=== PATIENT | male | born 1990 | race Caucasian/White ===

== ENCOUNTER 2025-02-23 13:50 | Outpatient (CLI) | payer BC, SELFPAY ==
--- OUTSIDE RECORDS SUMMARY | 2025-02-21 17:14 | XMS_ITS | Encounter Summary ---
Author Organization [facility] Address [address] [place] [address] Care Team Providers Care Collection Advisor Name Role Phone Provider, No Known Primary Care Provider Unavail able Reason for Visit * Reason Comments Chest Pain Encounter Details Date Type Department Care Team (Late st Contact Info) Description 02/21/2025 5:14 PM EDT - 02/21/2025 9:04 PM EDT Emergency [facility] [address] [place] [address] Naveen Martin MD [address] [place], [place] [id number] Acute chest pain (Primary Dx); Smoker; BMI [...] 5:28 PM EDT Kaylie Bailon, NU * [place] Suicide Severity Rating Scale (Screener/Recent Self-Report) Question [...] Care Everywhere. * Nonspecific Chest Pain Adult [id number] (Tunisian) documented in this encounter ED Notes * [...] this chart in the absence of a roll tube setter. ECG 12 Lead Chest Pain Preliminary Result [...] MD 02/21/2025 6:00 PM EDT Workstation ID: [id number] I ordered and independently reviewed the above [...] independently interpreted the patient's chest x-ray and water treatment technician. There is no pulmonary infiltrate and the [...] <6 <22 ng/L 02/21/2025 7:46 PM EDT [facility] Troponin T Numeric Delta 02/21/2025 7:46 PM EDT [facility] Comment:Unable to calculate. Blood Structure of left upper limb / Unknown Venipuncture / Unknown 02/21/2025 7:02 PM EDT 02/21/2025 7:13 PM EDT Narrative [facility] - 02/21/2025 7:46 PM EDT [...] MD LAB BLOOD ORDERABLES Final R esult [facility]
[address] [place] [address], * XR Chest 1 View (02/21/2025 5:53 PM EDT) Anatomical Region Laterality Modality Body N/A Radiographic Cindy ging 02/21/2025 6:00 PM EDT Impressions 02/21/2025 6:00 PM EDT Impression: 1.No acute radiographic abnormality is identified. Electronically Signed: Marito Guthrie MD 02/21/2025 6:00 PM EDT Workstation ID: [id number] Narrative 02/21/2025 6:00 PM EDT XR CHEST [...] MD 02/21/2025 6:00 PM EDT Workstation ID: [id number] Naveen Martin MD IM DIAGNOSTIC IMAGING ORDER CY Final Result * Telemetry Scan (02/21/2025 5:34 PM EDT) [facility] ECG ORDERABLES Final Result * (ABNORMAL) CBC Auto Differential (02/21/2025 5:26 PM EDT) WBC 11.45(H) 3.40 - 10.80 10*3/mm3 02/21/2025 5:51 PM EDT [facility] RBC 5.29 4.14 - 5.80 10*6/mm3 02/21/2025 5:51 PM EDT [facility] Hemoglobin 15.5 13.0 - 17.7 g/dL 02/21/2025 5:51 PM EDT [facility] Hematocrit 46.7 37.5 - 51.0 % 02/21/2025 5:51 PM EDT [facility] MCV 88.3 79.0 - 97.0 fL 02/21/2025 5:51 PM EDT [facility] MCH 29.3 26.6 - 33.0 pg 02/21/2025 5:51 PM EDT [facility] MCHC 33.2 31.5 - 35.7 g/dL 02/21/2025 5:51 PM EDT [facility] RDW 13.2 12.3 - 15.4 % 02/21/2025 5:51 PM EDT [facility] RDW-SD 42.9 37.0 - 54.0 fl 02/21/2025 5:51 PM EDT [facility] MPV 9.7 6.0 - 12.0 fL 02/21/2025 5:51 PM EDT [facility] Platelets 312 140 - 450 10*3/mm3 02/21/2025 5:51 PM EDT [facility] Neutrophil % 51.9 42.7 - 76.0 % 02/21/2025 5:51 PM EDT [facility] Lymphocyte % 34.0 19.6 - 45.3 % 02/21/2025 5:51 PM EDT [facility] Monocyte % 9.0 5.0 - 12.0 % 02/21/2025 5:51 PM EDT [facility] Eosinophil % 4.0 0.3 - 6.2 % 02/21/2025 5:51 PM EDT [facility] Basophil % 0.8 0.0 - 1.5 % 02/21/2025 5:51 PM EDT [facility] Immature Grans % 0.3 0.0 - 0.5 % 02/21/2025 5:51 PM EDT [facility] Neutrophils, Absolute 5.95 1.70 - 7.00 10*3/mm3 02/21/2025 5:51 PM EDT [facility] Lymphocytes, Absolute 3.89(H) 0.70 - 3.10 10*3/mm3 02/21/2025 5:51 PM EDT [facility] Monocytes, Absolute 1.03(H) 0.10 - 0.90 10*3/mm3 02/21/2025 5:51 PM EDT [facility] Eosinophils, Absolute 0.46(H) 0.00 - 0.40 10*3/mm3 02/21/2025 5:51 PM EDT [facility] Basophils, Absolute 0.09 0.00 - 0.20 10*3/mm3 02/21/2025 5:51 PM EDT [facility] Immature Grans, Absolute 0.03 0.00 - 0.05 10*3/mm3 02/21/2025 5:51 PM EDT [facility] nRBC 0.0 0.0 - 0.2 /100 WBC 02/21/2025 5:51 PM EDT [facility] Blood Venipuncture / Unknown 02/21/2025 5:26 PM EDT 02/21/2025 5:35 PM EDT Naveen Martin MD LAB BLOOD ORDERABLES Final R esult [facility]
[address] [place] [address], * Light Blue Top (02/21/2025 5:26 PM EDT) Extra Tube Hold for add-ons. 02/21/2025 5:46 PM EDT [facility] Comment:Auto resulted Blood Venipuncture / Unknown 02/21/2025 5:26 PM EDT 02/21/2025 5:35 PM EDT Naveen Martin MD LAB BLOOD ORDER ONLY Final R esult [facility]
[address] [place] [address], * Lee Top (02/21/2025 5:26 PM EDT) Extra Tube Hold for add-ons. 02/21/2025 5:46 PM EDT [facility] Comment:Auto resulted. Blood Venipuncture / Unknown 02/21/2025 5:26 PM EDT 02/21/2025 5:35 PM EDT us Naveen Martin MD LAB BLOOD ORDER ONLY Final R esult Performing Organization Address City/[facility]/ZIP Co de Phone Number [facility]
[address] [place] [address], * Gold Top - SST (02/21/2025 5:26 PM EDT) Extra Tube Hold for add-ons. 02/21/2025 5:46 PM EDT [facility] Comment:Auto resulted. Blood Venipuncture / Unknown 02/21/2025 5:26 PM EDT 02/21/2025 5:35 PM EDT us Naveen Martin MD LAB BLOOD ORDER ONLY Final R esult Performing Organization Address [facility]/ZIP Co de Phone Number [facility]
[address] [place] [address], * Lavender Top (02/21/2025 5:26 PM EDT) Extra Tube hold for add-on 02/21/2025 5:46 PM EDT [facility] Comment:Auto resulted Blood Venipuncture / Unknown 02/21/2025 5:26 PM EDT 02/21/2025 5:35 PM EDT us Naveen Martin MD LAB BLOOD ORDER ONLY Final R esult Performing Organization Address City/[facility]/ZIP Co de Phone Number [facility]
[address] [place] [address], [place] [phone] * Green Top (Gel) (02/21/2025 5:26 PM EDT) Extra Tube Hold for add-ons. 02/21/2025 5:46 PM EDT [facility] Comment:Auto resulted. Blood Venipuncture / Unknown 02/21/2025 5:26 PM EDT 02/21/2025 5:35 PM EDT Naveen Martin MD LAB BLOOD ORDER ONLY Final R esult Performing Organization Address City/[facility]/ZIP Co de Phone Number [facility]
[address] [place] [address], * BNP (02/21/2025 5:26 PM EDT) proBNP <36.0 0.0 - 450.0 pg/mL 02/21/2025 5:58 PM EDT [facility] Blood Venipuncture / Unknown 02/21/2025 5:26 PM EDT 02/21/2025 5:35 PM EDT Narrative [facility] - 02/21/2025 5:58 PM EDT [...] ORDERABLES Final R esult Performing Organization Address City/[facility]/ZIP Co de Phone Number [facility]
[address] [place] [address], * Lipase (02/21/2025 5:26 PM EDT) Lipase 33 13 - 60 U/L 02/21/2025 5:58 PM EDT [facility] Blood Venipuncture / Unknown 02/21/2025 5:26 PM EDT 02/21/2025 5:35 PM EDT Naveen Martin MD LAB BLOOD ORDERABLES Final R esult [facility]
[address] [place] [address], * Comprehensive Metabolic Panel (02/21/2025 5:26 PM EDT) Glucose 85 65 - 99 mg/dL 02/21/2025 5:58 PM EDT [facility] BUN 15.7 6.0 - 20.0 mg/dL 02/21/2025 5:58 PM EDT [facility] Creatinine 0.93 0.76 - 1.27 mg/dL 02/21/2025 5:58 PM EDT [facility] Sodium 141 136 - 145 mmol/L 02/21/2025 5:58 PM EDT [facility] Potassium 4.2 3.5 - 5.2 mmol/L 02/21/2025 5:58 PM EDT [facility] Chloride 106 98 - 107 mmol/L 02/21/2025 5:58 PM EDT [facility] CO2 26.5 22.0 - 29.0 mmol/L 02/21/2025 5:58 PM EDT [facility] Calcium 9.4 8.6 - 10.5 mg/dL 02/21/2025 5:58 PM EDT [facility] Total Protein 7.3 6.0 - 8.5 g/dL 02/21/2025 5:58 PM EDT [facility] Albumin 4.6 3.5 - 5.2 g/dL 02/21/2025 5:58 PM EDT [facility] ALT (SGPT) 18 1 - 41 U/L 02/21/2025 5:58 PM EDT [facility] AST (SGOT) 16 1 - 40 U/L 02/21/2025 5:58 PM EDT [facility] Alkaline Phosphatase 53 39 - 117 U/L 02/21/2025 5:58 PM EDT [facility] Total Bilirubin 0.6 0.0 - 1.2 mg/dL 02/21/2025 5:58 PM EDT [facility] Globulin 2.7 gm/dL 02/21/2025 5:58 PM EDT [facility] Comment:Calculated Result A/G Ratio 1.7 g/dL 02/21/2025 5:58 PM EDT [facility] BUN/Creatinine Ratio 16.9 7.0 - 25.0 02/21/2025 5:58 PM EDT [facility] Anion Gap 8.5 5.0 - 15.0 mmol/L 02/21/2025 5:58 PM EDT [facility] eGFR 110.5 >60.0 mL/min/1.7 3 02/21/2025 5:58 PM EDT [facility] Blood Venipuncture / Unknown 02/21/2025 5:26 PM EDT 02/21/2025 5:35 PM EDT [facility] - 02/21/2025 5:58 PM EDT GFR [...] MD LAB BLOOD ORDERABLES Final R esult [facility]
[address] [place] [address], [place] [phone] * High Sensitivity Troponin T (02/21/2025 5:26 PM EDT) HS Troponin T 17 <22 ng/L 02/21/2025 5:58 PM EDT [facility] Blood Venipuncture / Unknown 02/21/2025 5:26 PM EDT 02/21/2025 5:35 PM EDT Narrative [facility] - 02/21/2025 5:58 PM EDT [...] MD LAB BLOOD ORDERABLES Final R esult [facility]
[address] [place] [address], documented in this encounter Visit Diagnoses Diagnosis [...] [id number] documented in this encounter Care Teams Collection Advisor Relationship Specialty Start Date End Date Provider, [place] [address] PCP - General 02/21/25 documented as of this encounter
[2025-02-23 14:41] LABS: Hematocrit 45.7 % (42.0-52.0); Hemoglobin 15.2 g/dL (14.1-18.0); Immature Granulocytes % 0.3 %; Mean Corpuscular HGB Conc 33.3 g/dL (31.8-35.4); Mean Corpuscular Hemoglobin 29.2 pg (27.0-31.2); Mean Corpuscular Volume 87.9 fl (80-94); Nucleated Red Blood Cells % 0 %; Platelet Count 314 K/mm3 (142-424); Red Blood Count 5.20 M/mm3 (4.60-6.20); Red Cell Distribution Width-SD 41.8 fL; White Blood Count 9.0 K/mm3 (4.8-10.8)
--- OUTSIDE RECORDS SUMMARY | 2025-02-23 14:45 | XMS_ITS | Encounter Summary ---
Author Organization [facility] Address [address] [place] [address] Care Team Providers Care Foreclosure Home Inspector Name Role Phone Provider, No Known Primary Care Provider Unavail able Encounter Details Date Type Department Care Team (Latest Contact Info) Description 02/21/2025 Travel Social History Tobacco Use Types Packs/Day Years [...] on file documented as of this encounter Functional Status * Calculated C-SSRS Risk Score (Lifetime/Recent) Answer Date of Assessment Author No Risk Indicated 02/21/2025 5:28 PM EDT Kalyie Bailon, RN * [place] Suicide Severity Rating Scale (Screener/Recent Self-Report) Question Answer Date of Assessment Author 1. Wish to be (Past 1 Month) No 025 5:28 PM EDT Kaylie Bailon, RN 2. Non-Specific Active Suici carmelita Thoughts (Past 1 Month) No 02/21/2025 5:28 PM EDT Kaylie Bailon , RN 6. Suicidal Behavior (Lifetime) No 5:28 PM EDT Kaylie Bailon, RN documented as of this encounter Plan of Treatment Not on file documented as of this encounter Visit Diagnoses Not on filedocumented in this encounter Care Teams Foreclosure Home Inspector Relationship Specialty Start Date End Date Provider, [place] [address] PCP - General 02/21/25 documented as of this encounter
--- OUTSIDE RECORDS SUMMARY | 2025-02-23 14:45 | XMS_ITS | Clinical Summary ---
Author Organization [facility] Address [address] [place] [address] Care Team Providers Care Advertising Copywriter Name Role Phone Provider, No Known Primary Care Provider Unavail able Allergies No known active allergies Medications No known medications Encounters Date Type Department Care Team Description 02/21/2025 5:14 PM EDT - 02/21/2025 9:04 PM EDT Emergency [facility] [address] [place] [phone] Naveen Martin MD Acute chest pain (Primary Dx); Smoker; BMI 31.0-31.9,adult Discharge Disposition: Home or Self Care 02/21/2025 Travel from Last 3 Months Social History Tobacco Use Types Packs/Day Years [...] on file Sexual Orientation Not on file Last Filed Vital Signs Vital Sign Reading [...] Mass Index 31.66 02/21/2025 3:56 PM EDT Plan of Treatment Health Maintenance Due Date Last Done Comments ANNUAL PHYSICAL 1990 HEPATITIS C SCREENING 1990 TDAP/TD VACCINES (1 - Tdap) 2009 INFLUENZA VACCINE 11/28/2024 Pneumococcal Vaccine 0-49 Aged Out No longer eligible based on patient's age to complete this topic Procedures Procedure Name Priority Date/Time Associated Diagnosis [...] - TELEMETRY 02/21/2025 5 :34 PM EDT LIGHT BLUE TOP STAT 02/21/2025 5:26 PM EDT LEE TOP STAT 02/21/2025 5:26 PM EDT GOLD TOP - SST STAT 02/21/2025 5:26 PM EDT LAVENDER TOP STAT 02/21/2025 5:26 PM EDT DK GREEN TOP STAT 02/21/2025 5:26 PM EDT CBC AND DIFFERENTIAL STAT 02/21/2025 5:26 PM EDT CBC WITH AUTO DIFFERENTIAL STAT 02/21/2025 5:26 PM EDT B-TYPE NATRIURETIC PEPTIDE STAT 02/21/2025 5:26 PM EDT LIPASE STAT 02/21/2025 5:26 PM EDT COMPREHENSIVE METABOLIC PANEL STAT 02/21/2025 5:26 PM EDT TROPONIN STAT 02/21/2025 5:26 PM EDT RAINBOW DRAW STAT 02/21/2025 5:26 PM EDT ECG 12-LEAD [...] previous ECGs available Referred By: Confirmed By: from Last 3 Months Results * High Sensitivity Troponin T 1Hr (02/21/2025 7:02 PM EDT) HS Troponin T <6 <22 ng/L 02/21/2025 7:46 PM EDT [facility] Troponin T Numeric Delta 02/21/2025 7:46 PM EDT [facility] Comment:Unable to calculate. Blood Structure of left upper limb / Unknown Venipuncture / Unknown 02/21/2025 7:02 PM EDT 02/21/2025 7:13 PM EDT Narrative [facility] - 02/21/2025 7:46 PM EDT High [...] injury due to an underlying chronic condition. us Naveen Martin MD LAB BLOOD ORDERABLES Final R esult [facility]
[address] [place] [address], * XR Chest 1 View (02/21/2025 5:53 PM EDT) Anatomical Region Laterality Modality Body N/A Radiographic Cindy ging 02/21/2025 6:00 PM EDT Impressions 02/21/2025 6:00 PM EDT Impression: 1.No acute radiographic abnormality is identified. Electronically Signed: Marito Guthrie MD 02/21/2025 6:00 PM EDT Workstation ID: [id number] Narrative 02/21/2025 6:00 PM EDT XR CHEST [...] MD 02/21/2025 6:00 PM EDT Workstation ID: [id number] Naveen Martin MD IMG DIAGNOSTIC IMAGING ORDER CY Final Result * Telemetry Scan (02/21/2025 5:34 PM EDT) [facility] ORDERABLES Final Result * Lee Top (02/21/2025 5:26 PM EDT) Extra Tube Hold for add-ons. 02/21/2025 5:46 PM EDT [facility] Comment:Auto resulted. Blood Venipuncture / Unknown 02/21/2025 5:26 PM EDT 02/21/2025 5:35 PM EDT Naveen Martin MD LAB BLOOD ORDER ONLY Final R esult [facility]
[address] [place] [address], * Gold Top - SST (02/21/2025 5:26 PM EDT) Extra Tube Hold for add-ons. 02/21/2025 5:46 PM EDT [facility] Comment:Auto resulted. Blood Venipuncture / Unknown 02/21/2025 5:26 PM EDT 02/21/2025 5:35 PM EDT Naveen Martin MD LAB BLOOD ORDER ONLY Final R esult Performing Organization Address City/[facility]/ZIP Co de Phone Number [facility]
[address] [place] [address], * Green Top (Gel) (02/21/2025 5:26 PM EDT) Pathologist [facility] Extra Tube Hold for add-ons. 02/21/2025 5:46 PM EDT [facility] Comment:Auto resulted. Blood Venipuncture / Unknown 02/21/2025 5:26 PM EDT 02/21/2025 5:35 PM EDT Naveen Martin MD LAB BLOOD ORDER ONLY Final R esult Performing Organization Address City/[facility]/ZIP Co de Phone Number [facility]
[address] [place] [address], * (ABNORMAL) CBC Auto Differential (02/21/2025 5:26 PM EDT) Pathologist [facility] WBC 11.45(H) 3.40 - 10.80 10*3/mm3 02/21/2025 5:51 PM EDT [facility] RBC 5.29 4.14 - 5.80 10*6/mm3 02/21/2025 5:51 PM EDT [facility] Hemoglobin 15.5 13.0 - 17.7 g/dL 02/21/2025 5:51 PM EDT [facility] Hematocrit 46.7 37.5 - 51.0 % 02/21/2025 5:51 PM EDT [facility] MCV 88.3 79.0 - 97.0 fL 02/21/2025 5:51 PM EDT [facility] MCH 29.3 26.6 - 33.0 pg 02/21/2025 5:51 PM EDT [facility] MCHC 33.2 31.5 - 35.7 g/dL 02/21/2025 5:51 PM EDT [facility] RDW 13.2 12.3 - 15.4 % 02/21/2025 5:51 PM EDT [facility] RDW-SD 42.9 37.0 - 54.0 fl 02/21/2025 5:51 PM EDT [facility] MPV 9.7 6.0 - 12.0 fL 02/21/2025 5:51 PM EDT [facility] Platelets 312 140 - 450 10*3/mm3 02/21/2025 5:51 PM EDT [facility] Neutrophil % 51.9 42.7 - 76.0 % 02/21/2025 5:51 PM EDT [facility] Lymphocyte % 34.0 19.6 - 45.3 % 02/21/2025 5:51 PM EDT [facility] Monocyte % 9.0 5.0 - 12.0 % 02/21/2025 5:[facility] Eosinophil % 4.0 0.3 - 6.2 % 02/21/2025 5:51 PM EDT [facility] Basophil % 0.8 0.0 - 1.5 % 02/21/2025 5:51 PM EDT [facility] Immature Grans % 0.3 0.0 - 0.5 % 02/21/2025 5:51 PM EDT [facility] Neutrophils, Absolute 5.95 1.70 - 7.00 10*3/mm3 02/21/2025 5:51 PM EDT [facility] Lymphocytes, Absolute 3.89(H) 0.70 - 3.10 10*3/mm3 02/21/2025 5:51 PM EDT [facility] Monocytes, Absolute 1.03(H) 0.10 - 0.90 10*3/mm3 02/21/2025 5:51 PM EDT [facility] Eosinophils, Absolute 0.46(H) 0.00 - 0.40 10*3/mm3 02/21/2025 5:51 PM EDT [facility] Basophils, Absolute 0.09 0.00 - 0.20 10*3/mm3 02/21/2025 5:51 PM EDT [facility] Immature Grans, Absolute 0.03 0.00 - 0.05 10*3/mm3 02/21/2025 5:51 PM EDT [facility] nRBC 0.0 0.0 - 0.2 /100 WBC 02/21/2025 5:51 PM EDT [facility] Blood Venipuncture / Unknown 02/21/2025 5:26 PM EDT 02/21/2025 5:35 PM EDT Naveen Martin MD LAB BLOOD ORDERABLES Final R esult Performing Organization Address City/[facility]/ZIP Co de Phone Number [facility]
[address] [place] [address], * Lavender Top (02/21/2025 5:26 PM EDT) Extra Tube hold for add-on 02/21/2025 5:46 PM EDT [facility] Comment:Auto resulted Blood Venipuncture / Unknown 02/21/2025 5:26 PM EDT 02/21/2025 5:35 PM EDT Naveen Martin MD LAB BLOOD ORDER ONLY Final R esult [facility]
[address] [place] [address], * Light Blue Top (02/21/2025 5:26 PM EDT) Extra Tube Hold for add-ons. 02/21/2025 5:46 PM EDT [facility] Comment:Auto resulted Blood Venipuncture / Unknown 02/21/2025 5:26 PM EDT 02/21/2025 5:35 PM EDT Naveen Martin MD LAB BLOOD ORDER ONLY Final R esult [facility]
[address] [place] [address], * High Sensitivity Troponin T (02/21/2025 5:26 PM EDT) HS Troponin T 17 <22 ng/L 02/21/2025 5:58 PM EDT [facility] Blood Venipuncture / Unknown 02/21/2025 5:26 PM EDT 02/21/2025 5:35 PM EDT [facility] - 02/21/2025 5:58 PM EDT High [...] ORDERABLES Final R esult Performing Organization Address City/[facility]/ZIP Co de Phone Number [facility]
[address] [place] [address], * BNP (02/21/2025 5:26 PM EDT) proBNP <36.0 0.0 - 450.0 pg/mL 02/21/2025 5:58 PM EDT [facility] Blood Venipuncture / Unknown 02/21/2025 5:26 PM EDT 02/21/2025 5:35 PM EDT Narrative [facility] - 02/21/2025 5:58 PM EDT This [...] >75 Positive >1800 Lee 300-1800 Negative <300 Naveen Martin MD LAB BLOOD ORDERABLES Final R esult Performing Organization Address City/[facility]/ZIP Co de Phone Number [facility]
[address] [place] [address], * Lipase (02/21/2025 5:26 PM EDT) Lipase 33 13 - 60 U/L 02/21/2025 5:58 PM EDT [facility] Blood Venipuncture / Unknown 02/21/2025 5:26 PM EDT 02/21/2025 5:35 PM EDT Naveen Martin MD LAB BLOOD ORDERABLES Final R esult Performing Organization Address City/[facility]/ZIP Co de Phone Number [facility]
[address] [place] [address], * Comprehensive Metabolic Panel (02/21/2025 5:26 PM EDT) Glucose 85 65 - 99 mg/dL 02/21/2025 5:58 PM EDT [facility] BUN 15.7 6.0 - 20.0 mg/dL 02/21/2025 5:58 PM EDT [facility] Creatinine 0.93 0.76 - 1.27 mg/dL 02/21/2025 5:58 PM EDT [facility] Sodium 141 136 - 145 mmol/L 02/21/2025 5:58 PM EDT [facility] Potassium 4.2 3.5 - 5.2 mmol/L 02/21/2025 5:58 PM EDT [facility] Chloride 106 98 - 107 mmol/L 02/21/2025 5:58 PM EDT [facility] CO2 26.5 22.0 - 29.0 mmol/L 02/21/2025 5:58 PM EDT [facility] Calcium 9.4 8.6 - 10.5 mg/dL 02/21/2025 5:58 PM EDT [facility] Total Protein 7.3 6.0 - 8.5 g/dL 02/21/2025 5:58 PM EDT [facility] Albumin 4.6 3.5 - 5.2 g/dL 02/21/2025 5:58 PM EDT [facility] ALT (SGPT) 18 1 - 41 U/L 02/21/2025 5:58 PM EDT [facility] AST (SGOT) 16 1 - 40 U/L 02/21/2025 5:58 PM EDT [facility] Alkaline Phosphatase 53 39 - 117 U/L 02/21/2025 5:58 PM T [facility] Total Bilirubin 0.6 0.0 - 1.2 mg/dL 02/21/2025 5:58 PM EDT [facility] Globulin 2.7 gm/dL 02/21/2025 5:58 PM T [facility] Comment:Calculated Result A/G Ratio 1.7 g/dL 02/21/2025 5:58 PM EDT [facility] BUN/Creatinine Ratio 16.9 7.0 - 25.0 02/21/2025 5:58 PM T [facility] Anion Gap 8.5 5.0 - 15.0 mmol/L 02/21/2025 5:58 PM T [facility] eGFR 110.5 >60.0 mL/min/1.7 3 02/21/2025 5:58 PM [facility] Blood Venipuncture / Unknown 02/21/2025 5:26 PM EDT 02/21/2025 5:35 PM EDT Narrative [facility] - 02/21/2025 5:58 PM EDT GFR [...] MD LAB BLOOD ORDERABLES Final R esult [facility]
[address] [place] [address], from Last 3 Months Insurance PPO Care Teams Advertising Copywriter Relationship Specialty Start Date End Date Provider, [place] [address] PCP - General 02/21/25
[2025-02-23 15:19] LABS: D-Dimer 0.54 ug/mL (0.0-0.5)
[2025-02-23 16:06] LABS: Albumin Level 3.7 g/dl (3.5-5.0); Chloride 103 mmol/L (98-107)
[2025-02-23 16:07] LABS: Potassium 4.3 mmoL/L (3.5-5.1); Sodium 137 mmol/L (136-145)
[2025-02-23 16:09] LABS: Alanine Aminotransferase 20 U/L (12-78); Anion Gap 11.3 mEq/L (5-15); Aspartate Amino Transferase 22 U/L (17-59); Bilirubin,Unconjugated 1.0 mg/dL (0.0-1.1); Blood Urea Nitrogen 15 mg/dl (9-20); Carbon Dioxide 27 mmol/L (22.0-30.0); Cholesterol 152 mg/dl (140-200); Creatinine,Serum 0.90 mg/dl (0.66-1.25); Estimated Glomerular Filt Rate 97 ml/min (>60); GFR (African American) 117 ML/MIN (>60); Total Protein,Serum 7.4 g/dl (6.3-8.2); Triglycerides 60 mg/dl (30-150)
[2025-02-23 16:10] LABS: Alkaline Phosphatase 58 U/L (38-126); Bilirubin,Direct 0.2 mg/dl (0.0-0.4); Bilirubin,Indirect 1.0 mg/dL (0.0-0.9); Bilirubin,Total 1.2 mg/dl (0.2-1.3); Calcium 9.3 mg/dl (8.4-10.2); Glucose 83 mg/dl (74-100); HDL Cholesterol 39 mg/dl (40-60); Magnesium 2.0 mg/dl (1.6-2.3)
[2025-02-23 16:27] LABS: Free T4 (Free Thyroxine) 0.97 ng/dl (0.78-2.19)
[2025-02-23 16:41] LABS: Thyroid Stimulating Hormone 3.06 uIU/mL (0.465-4.68)
== END 2025-02-23 23:59 | disposition home or self-care (01) ==
PROVIDERS: Visit Provider Nurse Practitioner
DX: R00.2 Palpitations (principal); R07.9 Chest pain, unspecified; R53.83 Other fatigue; Z82.49 Family history of ischemic heart disease and other diseases of the circulatory system
CPT/HCPCS: 36415; 80048; 80061; 80076; 83735; 84439; 84443; 85025; 85378; 93270

== ENCOUNTER 2025-02-25 14:25 | Outpatient (CLI) | payer BC, SELFPAY ==
--- OUTSIDE RECORDS SUMMARY | 2025-02-21 17:14 | XMS_ITS | Encounter Summary ---
Author Organization [facility] Address [address] [place] [address] Care Team Providers Care Social Media Editor Name Role Phone Provider, No Known Primary Care Provider Unavail able Reason for Visit * Reason Comments Chest Pain Encounter Details Date Type Department Care Team (Late st Contact Info) Description 02/21/2025 5:14 PM EDT - 02/21/2025 9:04 PM EDT Emergency [facility] [address] [place] [address] Naveen Martin MD [address] [place], [place] [id number] Acute chest pain (Primary Dx); Smoker; BMI [...] 5:28 PM EDT Kaylie Bailon, NU * [place] Suicide Severity Rating Scale (Screener/Recent Self-Report) Question [...] Care Everywhere. * Nonspecific Chest Pain Adult [id number] ([place]) documented in this encounter ED Notes * [...] this chart in the absence of a commercial specialist. ECG 12 Lead Chest Pain Preliminary Result [...] MD 02/21/2025 6:00 PM EDT Workstation ID: [id number] I ordered and independently reviewed the above [...] independently interpreted the patient's chest x-ray and registered nurse cardiac telemetry. There is no pulmonary infiltrate and the [...] <6 <22 ng/L 02/21/2025 7:46 PM EDT [facility] Troponin T Numeric Delta 02/21/2025 7:46 PM EDT [facility] Comment:Unable to calculate. Blood Structure of left upper limb / Unknown Venipuncture / Unknown 02/21/2025 7:02 PM EDT 02/21/2025 7:13 PM EDT Narrative [facility] - 02/21/2025 7:46 PM EDT High [...] MD LAB BLOOD ORDERABLES Final R esult [facility]
[address] [place] [address], * XR Chest 1 View (02/21/2025 5:53 PM EDT) Anatomical Region Laterality Modality Body N/A Radiographic Cindy ging 02/21/2025 6:00 PM EDT Impressions 02/21/2025 6:00 PM EDT Impression: 1.No acute radiographic abnormality is identified. Electronically Signed: Marito Guthrie MD 02/21/2025 6:00 PM EDT Workstation ID: [id number] Narrative 02/21/2025 6:00 PM EDT XR CHEST [...] MD 02/21/2025 6:00 PM EDT Workstation ID: [id number] Naveen Martin MD IM DIAGNOSTIC IMAGING ORDER CY Final Result * Telemetry Scan (02/21/2025 5:34 PM EDT) [facility] ORDERABLES Final Result * (ABNORMAL) CBC Auto Differential (02/21/2025 5:26 PM EDT) WBC 11.45(H) 3.40 - 10.80 10*3/mm3 02/21/2025 5:51 PM EDT [facility] RBC 5.29 4.14 - 5.80 10*6/mm3 02/21/2025 5:51 PM EDT [facility] Hemoglobin 15.5 13.0 - 17.7 g/dL 02/21/2025 5:51 PM EDT [facility] Hematocrit 46.7 37.5 - 51.0 % 02/21/2025 5:51 PM EDT [facility] MCV 88.3 79.0 - 97.0 fL 02/21/2025 5:51 PM EDT [facility] MCH 29.3 26.6 - 33.0 pg 02/21/2025 5:51 PM EDT [facility] MCHC 33.2 31.5 - 35.7 g/dL 02/21/2025 5:51 PM EDT [facility] RDW 13.2 12.3 - 15.4 % 02/21/2025 5:51 PM EDT [facility] RDW-SD 42.9 37.0 - 54.0 fl 02/21/2025 5:51 PM EDT [facility] MPV 9.7 6.0 - 12.0 fL 02/21/2025 5:51 PM EDT [facility] Platelets 312 140 - 450 10*3/mm3 02/21/2025 5:51 PM EDT [facility] Neutrophil % 51.9 42.7 - 76.0 % 02/21/2025 5:51 PM EDT [facility] Lymphocyte % 34.0 19.6 - 45.3 % 02/21/2025 5:51 PM EDT [facility] Monocyte % 9.0 5.0 - 12.0 % 02/21/2025 5:51 PM EDT [facility] Eosinophil % 4.0 0.3 - 6.2 % 02/21/2025 5:51 PM EDT [facility] Basophil % 0.8 0.0 - 1.5 % 02/21/2025 5:51 PM EDT [facility] Immature Grans % 0.3 0.0 - 0.5 % 02/21/2025 5:51 PM EDT [facility] Neutrophils, Absolute 5.95 1.70 - 7.00 10*3/mm3 02/21/2025 5:51 PM EDT [facility] Lymphocytes, Absolute 3.89(H) 0.70 - 3.10 10*3/mm3 02/21/2025 5:51 PM EDT [facility] Monocytes, Absolute 1.03(H) 0.10 - 0.90 10*3/mm3 02/21/2025 5:51 PM EDT [facility] Eosinophils, Absolute 0.46(H) 0.00 - 0.40 10*3/mm3 02/21/2025 5:51 PM EDT [facility] Basophils, Absolute 0.09 0.00 - 0.20 10*3/mm3 02/21/2025 5:51 PM EDT [facility] Immature Grans, Absolute 0.03 0.00 - 0.05 10*3/mm3 02/21/2025 5:51 PM EDT [facility] nRBC 0.0 0.0 - 0.2 /100 WBC 02/21/2025 5:51 PM EDT [facility] Blood Venipuncture / Unknown 02/21/2025 5:26 PM EDT 02/21/2025 5:35 PM EDT Naveen Martin MD LAB BLOOD ORDERABLES Final R esult [facility]
[address] [place] [address], * Light Blue Top (02/21/2025 5:26 PM EDT) Extra Tube Hold for add-ons. 02/21/2025 5:46 PM EDT [facility] Comment:Auto resulted Blood Venipuncture / Unknown 02/21/2025 5:26 PM EDT 02/21/2025 5:35 PM EDT Naveen Martin MD LAB BLOOD ORDER ONLY Final R esult [facility]
[address] [place] [address], * Lee Top (02/21/2025 5:26 PM EDT) Extra Tube Hold for add-ons. 02/21/2025 5:46 PM EDT [facility] Comment:Auto resulted. Blood Venipuncture / Unknown 02/21/2025 5:26 PM EDT 02/21/2025 5:35 PM EDT us Naveen Martin MD LAB BLOOD ORDER ONLY Final R esult Performing Organization Address City/[facility]/ZIP Co de Phone Number [facility]
[address] [place] [address], * Gold Top - SST (02/21/2025 5:26 PM EDT) Extra Tube Hold for add-ons. 02/21/2025 5:46 PM EDT [facility] Comment:Auto resulted. Blood Venipuncture / Unknown 02/21/2025 5:26 PM EDT 02/21/2025 5:35 PM EDT us Naveen Martin MD LAB BLOOD ORDER ONLY Final R esult Performing Organization Address [facility]/ZIP Co de Phone Number [facility]
[address] [place] [address], * Lavender Top (02/21/2025 5:26 PM EDT) Extra Tube hold for add-on 02/21/2025 5:46 PM EDT [facility] Comment:Auto resulted Blood Venipuncture / Unknown 02/21/2025 5:26 PM EDT 02/21/2025 5:35 PM EDT us Naveen Martin MD LAB BLOOD ORDER ONLY Final R esult Performing Organization Address City/[facility]/ZIP Co de Phone Number [facility]
[address] [place] [address], [place] [phone] * Green Top (Gel) (02/21/2025 5:26 PM EDT) Extra Tube Hold for add-ons. 02/21/2025 5:46 PM EDT [facility] Comment:Auto resulted. Blood Venipuncture / Unknown 02/21/2025 5:26 PM EDT 02/21/2025 5:35 PM EDT Naveen Martin MD LAB BLOOD ORDER ONLY Final R esult Performing Organization Address City/[facility]/ZIP Co de Phone Number [facility]
[address] [place] [address], * BNP (02/21/2025 5:26 PM EDT) proBNP <36.0 0.0 - 450.0 pg/mL 02/21/2025 5:58 PM EDT [facility] Blood Venipuncture / Unknown 02/21/2025 5:26 PM EDT 02/21/2025 5:35 PM EDT Narrative [facility] - 02/21/2025 5:58 PM EDT This [...] ORDERABLES Final R esult Performing Organization Address City/[facility]/ZIP Co de Phone Number [facility]
[address] [place] [address], * Lipase (02/21/2025 5:26 PM EDT) Lipase 33 13 - 60 U/L 02/21/2025 5:58 PM EDT [facility] Blood Venipuncture / Unknown 02/21/2025 5:26 PM EDT 02/21/2025 5:35 PM EDT Naveen Martin MD LAB BLOOD ORDERABLES Final R esult [facility]
[address] [place] [address], * Comprehensive Metabolic Panel (02/21/2025 5:26 PM EDT) Glucose 85 65 - 99 mg/dL 02/21/2025 5:58 PM EDT [facility] BUN 15.7 6.0 - 20.0 mg/dL 02/21/2025 5:58 PM EDT [facility] Creatinine 0.93 0.76 - 1.27 mg/dL 02/21/2025 5:58 PM EDT [facility] Sodium 141 136 - 145 mmol/L 02/21/2025 5:58 PM EDT [facility] Potassium 4.2 3.5 - 5.2 mmol/L 02/21/2025 5:58 PM EDT [facility] Chloride 106 98 - 107 mmol/L 02/21/2025 5:58 PM EDT [facility] CO2 26.5 22.0 - 29.0 mmol/L 02/21/2025 5:58 PM EDT [facility] Calcium 9.4 8.6 - 10.5 mg/dL 02/21/2025 5:58 PM EDT [facility] Total Protein 7.3 6.0 - 8.5 g/dL 02/21/2025 5:58 PM EDT [facility] Albumin 4.6 3.5 - 5.2 g/dL 02/21/2025 5:58 PM EDT [facility] ALT (SGPT) 18 1 - 41 U/L 02/21/2025 5:58 PM EDT [facility] AST (SGOT) 16 1 - 40 U/L 02/21/2025 5:58 PM EDT [facility] Alkaline Phosphatase 53 39 - 117 U/L 02/21/2025 5:58 PM EDT [facility] Total Bilirubin 0.6 0.0 - 1.2 mg/dL 02/21/2025 5:58 PM EDT [facility] Globulin 2.7 gm/dL 02/21/2025 5:58 PM EDT [facility] Comment:Calculated Result A/G Ratio 1.7 g/dL 02/21/2025 5:58 PM EDT [facility] BUN/Creatinine Ratio 16.9 7.0 - 25.0 02/21/2025 5:58 PM EDT [facility] Anion Gap 8.5 5.0 - 15.0 mmol/L 02/21/2025 5:58 PM EDT [facility] eGFR 110.5 >60.0 mL/min/1.7 3 02/21/2025 5:58 PM EDT [facility] Blood Venipuncture / Unknown 02/21/2025 5:26 PM EDT 02/21/2025 5:35 PM EDT [facility] - 02/21/2025 5:58 PM EDT GFR [...] MD LAB BLOOD ORDERABLES Final R esult [facility]
[address] [place] [address], [place] [phone] * High Sensitivity Troponin T (02/21/2025 5:26 PM EDT) HS Troponin T 17 <22 ng/L 02/21/2025 5:58 PM EDT [facility] Blood Venipuncture / Unknown 02/21/2025 5:26 PM EDT 02/21/2025 5:35 PM EDT Narrative [facility] - 02/21/2025 5:58 PM EDT High [...] MD LAB BLOOD ORDERABLES Final R esult [facility]
[address] [place] [address], documented in this encounter Visit Diagnoses Diagnosis [...] [id number] documented in this encounter Care Teams Social Media Editor Relationship Specialty Start Date End Date Provider, [place] [address] PCP - General 02/21/25 documented as of this encounter
--- OUTSIDE RECORDS SUMMARY | 2025-02-24 04:33 | XMS_ITS | Continuity of Care Document ---
Author Organization [facility] Phone Care Team Providers Care Automotive Parts Coordinator Name Role Phone NO, FAMILY P Primary Care FRANCISCO THOMPSON Unavailable FRANCISCO THOMPSON Primary Attending FRANCISCO THOMPSON Admitting ALLERGIES AND ADVERSE REACTIONS ALLERGIES AND ADVERSE REACTIONS Code System Allergy Substance Adverse Reaction Date Reaction (Severity) Comment Status Reported By Updated By No Known Allergies [id number] on February 22, 2025 9:29:[address] [facility] MEDICATIONS HOME MEDICATIONS Status RXNORM NDC Medication Dose Route Frequency Dates Comments Reported By Updated By Patient not on Self-Medications [id number] on February 22, 2025 9:29:[address] [facility] DISCHARGE MEDICATIONS Status RXNORM NDC Medication Dose Route Frequency Dates Dis pense Data Comments Physician Updated By No Discharge Medication Info rmation Available INPATIENT MEDICATIONS Status RXNORM NDC Medication Dose Route Frequency Rat e Quantity Dates Indication Dispense Data Comments Physician Updated By No Inpatient Medication Info rmation Available SOCIAL HISTORY SOCIAL HISTORY - Smoking Status SNOMED-CT Social History Element Description Effective Dates Offered Cessation Comment Updated By [id number] Current Tobacco smoking status Current Every Day Smoker [id number] on February 22, 2025 9:29:[address] [facility] SOCIAL HISTORY - Gender Sex: Male SOCIAL HISTORY - Status : status i nformation is not available Intention in Next Year: intention information is not available SOCIAL HISTORY - Assessments Code System Description Status Date Value of Assessment Updated By Comment Assessment Information is no t available SOCIAL HISTORY - [place] Affiliation [place]ock information is not av ailable SOCIAL HISTORY - Legal Sex Legal Sex information is not available SOCIAL HISTORY - Sexual Behavior Sexual Orientation Gender Identity SNOMED-CT Description SNO MED -CT Description Activity Level No of Partners Partner Type UpdatedBy Information is not available SOCIAL HISTORY - Occupation Occupation information is no t available VITAL SIGNS PATIENT VITAL SIGNS This section displays the mo st recent value for each vital sign as of February 24, 2025 8:33:56 AM UTC Loinc Code Vital Sign Activity Date Result Updated By 8310-5 Body temperature February 22 9:55:00 PM UTC 98.1 [degF] 72938-1 Body weight Measured February 22, 2025 9:04:52 PM UTC 120.0 kg (265.0 lb) [id number] on February 22, 2025 9:04:52 PM UTC 8462-4 Diastolic blood pressure February 22, 2025 9:55:00 PM UTC 87.0 mm[Hg] 8867-4 Heart rate February 22, 2025 9:55:00 PM UTC 87 /min 90637-3 Oxygen saturation in Arterial blood by Pulse oximetry February 22, 2025 9:55:00 PM UTC 98.0 % 9279-1 Respiratory rate February 22 9:55:00 PM UTC 18 /min 8480-6 Systolic blood pressure February 22, 2025 9:55:00 PM UTC 132.0 mm[Hg] PEDIATRIC GROWTH CHART - VITAL SIGNS This section displays Head C ircumference Percentile, Weight for Length Percentile and BMI Percentile Loinc Code Pediatric Measure Age (Months) Result Updat ed By No Pediatric Growth Chart Pe rcentile Information Available. HEALTH CONCERNS Problems Concern Status Health Concern problem infor mation not available. Smoking Status Status Years Used Consumed packs p er day Health Concern smoking histo ry information not available. Family History Concern Status Health Concern family histor y information not available. ENCOUNTERS ENCOUNTER INFORMATION Reason for Visit PALPITATIONS Admission February 22, 2025 8:46:00 PM UTC [address] [id number] Discharge February 22, 2025 9:56:00 PM UTC DISCHARGED TO HOME OR SELF CARE ENCOUNTER DIAGNOSES Notes information is not kristen ilable. Code System Diagnosis Onset Date Diagnosis information is not available. 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, UNCOMPLICATED [id number] on February 24, 2025 8:33:12 AM UTC F17.210 ICD10 NICOTINE DEPENDE NCE, CIGARETTES, UNCOMPLICATED [id number] on February 24, 2025 8:33:12 AM UTC Z71.6 ICD10 TOBACCO ABUSE COUNSELING EDER [id number] on February 24, 2025 8:33:12 AM [place] CARE TEAM Care Automotive Parts Coordinator Role FAMILY NO Primary Care FRANCISCO THOMPSON Referring FRANCISCO THOMPSON Primary Attending FRANCISCO THOMPSON Admitting CARE TEAM CARE esthetics instructor Role on Team Location Telecom Status Start Date End Johnny e Updated By JAY Walls MD, MD Referring normal February 22, 2025 9:06:16 PM [place] February 22, 2025 9:56:00 PM UTC [id number] on February 22, 2025 9:06:16 PM [place] JAY Walls MD, MD Attending normal February 22, 2025 9:06:16 PM UT February 22, 2025 9:56:00 PM UTC [id number] on February 22, 2025 9:06:[address] [facility] JAY Walls MD, MD Admitting normal February 22, 2025 9:06:16 PM UT February 22, 2025 9:56:00 PM UTC [id number] on February 22, 2025 9:06:[address] [facility] NO FAMILY PHYSICIAN PCP normal February 22, 2025 8:46:44 PM [place] February 22, 2025 9:56:00 PM UTC [id number] on February 22, 2025 9:06:16 PM UTC
--- OUTSIDE RECORDS SUMMARY | 2025-02-25 14:28 | XMS_ITS | Clinical Summary ---
Author Organization [facility] Address [address] [place] [address] Care Team Providers Care Disability Manager Name Role Phone Provider, No Known Primary Care Provider Unavail able Allergies No known active allergies Medications No known medications Encounters Date Type Department Care Team Description 02/21/2025 5:14 PM EDT - 02/21/2025 9:04 PM EDT Emergency [facility] [address] [place] [id number] Naveen Martin MD Acute chest pain [...] <6 <22 ng/L 02/21/2025 7:46 PM EDT [facility] Troponin T Numeric Delta 02/21/2025 7:46 PM EDT [facility] Comment:Unable to calculate. Blood Structure of left upper limb / Unknown Venipuncture / Unknown 02/21/2025 7:02 PM EDT 02/21/2025 7:13 PM EDT Narrative [facility] - 02/21/2025 7:46 PM EDT [...] MD LAB BLOOD ORDERABLES Final R esult [facility]
[address] [place] [address], * XR Chest 1 View (02/21/2025 5:53 PM EDT) Anatomical Region Laterality Modality Body N/A Radiographic Cindy ging 02/21/2025 6:00 PM EDT Impressions 02/21/2025 6:00 PM EDT Impression: 1.No acute radiographic abnormality is identified. Electronically Signed: Marito Guthrie MD 02/21/2025 6:00 PM EDT Workstation ID: [id number] Narrative 02/21/2025 6:00 PM EDT XR CHEST [...] MD 02/21/2025 6:00 PM EDT Workstation ID: [id number] Naveen Martin MD IMG DIAGNOSTIC IMAGING ORDER CY Final Result * Telemetry Scan (02/21/2025 5:34 PM EDT) [facility] ECG ORDERABLES Final Result * Lee Top (02/21/2025 5:26 PM EDT) Extra Tube Hold for add-ons. 02/21/2025 5:46 PM EDT [facility] Comment:Auto resulted. Blood Venipuncture / Unknown 02/21/2025 5:26 PM EDT 02/21/2025 5:35 PM EDT Naveen Martin MD LAB BLOOD ORDER ONLY Final R esult [facility]
[address] [place] [address], * Gold Top - SST (02/21/2025 5:26 PM EDT) Extra Tube Hold for add-ons. 02/21/2025 5:46 PM EDT [facility] Comment:Auto resulted. Blood Venipuncture / Unknown 02/21/2025 5:26 PM EDT 02/21/2025 5:35 PM EDT Naveen Martin MD LAB BLOOD ORDER ONLY Final R esult Performing Organization Address City/[facility]/ZIP Co de Phone Number [facility]
[address] [place] [address], * Green Top (Gel) (02/21/2025 5:26 PM EDT) Pathologist [facility] [place] Extra Tube Hold for add-ons. 02/21/2025 5:46 PM EDT [facility] Comment:Auto resulted. Blood Venipuncture / Unknown 02/21/2025 5:26 PM EDT 02/21/2025 5:35 PM EDT Naveen Martin MD LAB BLOOD ORDER ONLY Final R esult Performing Organization Address City/[facility]/ZIP Co de Phone Number [facility]
[address] [place] [address], * (ABNORMAL) CBC Auto Differential (02/21/2025 5:26 PM EDT) Pathologist [facility] [place] WBC 11.45(H) 3.40 - 10.80 10*3/mm3 02/21/2025 5:51 PM EDT [facility] RBC 5.29 4.14 - 5.80 10*6/mm3 02/21/2025 5:51 PM EDT [facility] Hemoglobin 15.5 13.0 - 17.7 g/dL 02/21/2025 5:51 PM EDT [facility] Hematocrit 46.7 37.5 - 51.0 % 02/21/2025 5:51 PM EDT [facility] MCV 88.3 79.0 - 97.0 fL 02/21/2025 5:51 PM EDT [facility] MCH 29.3 26.6 - 33.0 pg 02/21/2025 5:51 PM EDT [facility] MCHC 33.2 31.5 - 35.7 g/dL 02/21/2025 5:51 PM EDT [facility] RDW 13.2 12.3 - 15.4 % 02/21/2025 5:51 PM EDT [facility] RDW-SD 42.9 37.0 - 54.0 fl 02/21/2025 5:51 PM EDT [facility] MPV 9.7 6.0 - 12.0 fL 02/21/2025 5:51 PM EDT [facility] Platelets 312 140 - 450 10*3/mm3 02/21/2025 5:51 PM EDT [facility] Neutrophil % 51.9 42.7 - 76.0 % 02/21/2025 5:51 PM EDT [facility] Lymphocyte % 34.0 19.6 - 45.3 % 02/21/2025 5:51 PM EDT [facility] Monocyte % 9.0 5.0 - 12.0 % [facility]25 [facility] Eosinophil % 4.0 0.3 - 6.2 % 02/21/2025 5:51 PM EDT [facility] Basophil % 0.8 0.0 - 1.5 % 02/21/2025 5:51 PM EDT [facility] Immature Grans % 0.3 0.0 - 0.5 % 02/21/2025 5:51 PM EDT [facility] Neutrophils, Absolute 5.95 1.70 - 7.00 10*3/mm3 02/21/2025 5:51 PM EDT [facility] Lymphocytes, Absolute 3.89(H) 0.70 - 3.10 10*3/mm3 02/21/2025 5:51 PM EDT [facility] Monocytes, Absolute 1.03(H) 0.10 - 0.90 10*3/mm3 02/21/2025 5:51 PM EDT [facility] Eosinophils, Absolute 0.46(H) 0.00 - 0.40 10*3/mm3 02/21/2025 5:51 PM EDT [facility] Basophils, Absolute 0.09 0.00 - 0.20 10*3/mm3 02/21/2025 5:51 PM EDT [facility] Immature Grans, Absolute 0.03 0.00 - 0.05 10*3/mm3 02/21/2025 5:51 PM EDT [facility] nRBC 0.0 0.0 - 0.2 /100 WBC 02/21/2025 5:51 PM EDT [facility] Blood Venipuncture / Unknown 02/21/2025 5:26 PM EDT 02/21/2025 5:35 PM EDT Naveen Martin MD LAB BLOOD ORDERABLES Final R esult Performing Organization Address City/[facility]/ZIP Co de Phone Number [facility]
[address] [place] [address], * Lavender Top (02/21/2025 5:26 PM EDT) Extra Tube hold for add-on 02/21/2025 5:46 PM EDT [facility] Comment:Auto resulted Blood Venipuncture / Unknown 02/21/2025 5:26 PM EDT 02/21/2025 5:35 PM EDT Naveen Martin MD LAB BLOOD ORDER ONLY Final R esult [facility]
[address] [place] [address], * Light Blue Top (02/21/2025 5:26 PM EDT) Extra Tube Hold for add-ons. 02/21/2025 5:46 PM EDT [facility] Comment:Auto resulted Blood Venipuncture / Unknown 02/21/2025 5:26 PM EDT 02/21/2025 5:35 PM EDT Naveen Martin MD LAB BLOOD ORDER ONLY Final R esult [facility]
[address] [place] [address], * High Sensitivity Troponin T (02/21/2025 5:26 PM EDT) HS Troponin T 17 <22 ng/L 02/21/2025 5:58 PM EDT [facility] Blood Venipuncture / Unknown 02/21/2025 5:26 PM EDT 02/21/2025 5:35 PM EDT [facility] - 02/21/2025 5:58 PM EDT High [...] ORDERABLES Final R esult Performing Organization Address City/[facility]/ZIP Co de Phone Number [facility]
[address] [place] [address], * BNP (02/21/2025 5:26 PM EDT) proBNP <36.0 0.0 - 450.0 pg/mL 02/21/2025 5:58 PM EDT [facility] Blood Venipuncture / Unknown 02/21/2025 5:26 PM EDT 02/21/2025 5:35 PM EDT Narrative [facility] - 02/21/2025 5:58 PM EDT [...] ORDERABLES Final R esult Performing Organization Address City/[facility]/ZIP Co de Phone Number [facility]
[address] [place] [address], * Lipase (02/21/2025 5:26 PM EDT) Lipase 33 13 - 60 U/L 02/21/2025 5:58 PM EDT [facility] Blood Venipuncture / Unknown 02/21/2025 5:26 PM EDT 02/21/2025 5:35 PM EDT Naveen Martin MD LAB BLOOD ORDERABLES Final R esult Performing Organization Address City/[facility]/ZIP Co de Phone Number [facility]
[address] [place] [address], * Comprehensive Metabolic Panel (02/21/2025 5:26 PM EDT) Glucose 85 65 - 99 mg/dL 02/21/2025 5:58 PM EDT [facility] BUN 15.7 6.0 - 20.0 mg/dL 02/21/2025 5:58 PM EDT [facility] Creatinine 0.93 0.76 - 1.27 mg/dL 02/21/2025 5:58 PM EDT [facility] Sodium 141 136 - 145 mmol/L 02/21/2025 5:58 PM EDT [facility] Potassium 4.2 3.5 - 5.2 mmol/L 02/21/2025 5:58 PM EDT [facility] Chloride 106 98 - 107 mmol/L 02/21/2025 5:58 PM EDT [facility] CO2 26.5 22.0 - 29.0 mmol/L 02/21/2025 5:58 PM EDT [facility] Calcium 9.4 8.6 - 10.5 mg/dL 02/21/2025 5:58 PM EDT [facility] Total Protein 7.3 6.0 - 8.5 g/dL 02/21/2025 5:58 PM EDT [facility] Albumin 4.6 3.5 - 5.2 g/dL 02/21/2025 5:58 PM EDT [facility] ALT (SGPT) 18 1 - 41 U/L 02/21/2025 5:58 PM EDT [facility] AST (SGOT) 16 1 - 40 U/L 02/21/2025 5:58 PM EDT [facility] Alkaline Phosphatase 53 39 - 117 U/L 02/21/2025 5:58 PM T [facility] Total Bilirubin 0.6 0.0 - 1.2 mg/dL 02/21/2025 5:58 PM EDT [facility] Globulin 2.7 gm/dL 02/21/2025 5:58 PM T [facility] Comment:Calculated Result A/G Ratio 1.7 g/dL 02/21/2025 5:58 PM EDT [facility] BUN/Creatinine Ratio 16.9 7.0 - 25.0 02/21/2025 5:58 PM T [facility] Anion Gap 8.5 5.0 - 15.0 mmol/L 02/21/2025 5:58 PM T [facility] eGFR 110.5 >60.0 mL/min/1.7 3 02/21/2025 5:58 PM [facility] Blood Venipuncture / Unknown 02/21/2025 5:26 PM EDT 02/21/2025 5:35 PM EDT Narrative [facility] - 02/21/2025 5:58 PM EDT GFR [...] MD LAB BLOOD ORDERABLES Final R esult [facility]
[address] [place] [address], from Last 3 Months Insurance PPO Care Teams Disability Manager Relationship Specialty Start Date End Date Provider, [place] [address] PCP - General 02/21/25
--- OUTSIDE RECORDS SUMMARY | 2025-02-25 14:29 | XMS_ITS | Encounter Summary ---
Author Organization [facility] Address [address] [place] [address] Care Team Providers Care Road Driver Name Role Phone Provider, No Known Primary [...] Indicated 02/21/2025 5:28 PM EDT Kaylie Bailon, RN * [place] Suicide Severity Rating Scale (Screener/Recent Self-Report) Question [...] on filedocumented in this encounter Care Teams Road Driver Relationship Specialty Start Date End Date Provider, [place] [address] PCP - General 02/21/25 documented as of this encounter
--- NOTE | 2025-02-25 14:45 | CT_ITS ---
FINAL REPORT TECHNIQUE: The patient was injected with IV contrast. Axial images were obtained through the chest in a PE protocol. 3-D reconstruction images were also performed. Individualized dose reduction techniques using automated exposure control or adjustment of the MA and/or KV according to patient's size were employed. CLINICAL HISTORY: Rule out DVT FINDINGS: Mediastinal vasculature is adequately opacified. No pulmonary artery filling defects are identified to suggest PE. There is no aortic dissection. There is no axillary adenopathy. There is no hilar or mediastinal adenopathy. The heart size is normal. There is no pericardial or pleural effusion. There is fatty infiltration of the liver. No suspicious infiltrate or nodule is identified. IMPRESSION: No pulmonary embolus or dissection. Reviewed, Interpreted and Dictated by Orlando Leigh MD Transcribed by Sarahi Cruz Authenticated and [facility]
[2025-02-25] MEDS: IOPAMIDOL-370 (76%);100ML BOTTLE 85 ML IV (15:06)
[2025-02-25] MEDS: 0.9 % SODIUM CHLORIDE 50 ML VIAL IV (15:06)
[2025-02-25] MEDS: SODIUM CHLORIDE 0.9% 10ML SYR (RAD ONLY) 10 ML IV (15:06)
== END 2025-02-25 23:59 | disposition home or self-care (01) ==
LOC: RAD 14:26
PROVIDERS: PCP Nurse Practitioner; Visit Provider Nurse Practitioner
DX: R79.89 Other specified abnormal findings of blood chemistry (principal)
CPT/HCPCS: 71275; Q9967

== ENCOUNTER 2025-03-02 06:45 | Outpatient (CLI) | payer BC, SELFPAY ==
--- OUTSIDE RECORDS SUMMARY | 2025-02-21 16:14 | XMS_ITS | Encounter Summary ---
Author Organization [facility] Address [address] [place] [address] Care Team Providers Care Memorandum Statement Clerk Name Role Phone Provider, No Known Primary Care Provider Unavail able Reason for Visit * Reason Comments Chest Pain Encounter Details Date Type Department Care Team (Late st Contact Info) Description 02/21/2025 5:14 PM EDT - 02/21/2025 9:04 PM EDT Emergency [facility] [address] [place] [address] Naveen Martin MD [address] [place], [place] [id number] Acute chest pain (Primary Dx); Smoker; BMI 31.0-31.9,adult Discharge Disposition: Home or Self Care Social History Tobacco Use Types Packs/Day Years Used Date Smoking Tobacco: Never Assessed Abuse Screen Answer Date Recorded Feels Unsafe at Home or Work/School no 02/21/2025 Feels Threatened by Someone no 01/29 Does Anyone Try to Keep You From Having Contact with Others or Doing Things Outside Your Home? no 02/21/2025 Physical Signs of Abuse Present no 02/21/2025 Housing Stability Answer Date Recorded Current Living Arrangements Not on file 12/2022 Potentially Unsafe Housing Conditions Not on romero e 02/05/2023 Family and Community Support Answer Johnny e Recorded Help with Day-to-Day Activities Not on file 02/05/2023 Lonely or Isolated Not on file 02/05/2023 Employment Answer Date Recorded Do you want help finding or keeping work or a regina b? Not on file 02/05/2023 Disabilities Answer Date Recorded Concentrating, Remembering, or Making Decisions Difficulty Not on file 02/05/2023 Doing Errands Independently Difficulty Not on fi le 02/05/2023 Education Answer Date Recorded Help with school or training? Not on file Preferred Language Not on file 02/05/2023 Sex and Gender Information Value Date Recorded Sex Assigned at Not on file Legal Sex Male 11:02 AM EDT Gender Identity Not on file Sexual Orientation Not on file documented as of this encounter Last Filed Vital Signs Vital Sign Reading Time Taken Comments Blood Pressure 126/78 02/21/2025 8:00 PM EDT Pulse 69 02/21/2025 9:00 PM EDT Temperature 36.6 C (97.9 F) 02/21/2025 3:56 PM EDT Respiratory Rate 16 02/21/2025 6:45 PM EDT Oxygen Saturation 98% 02/21/2025 9:00 PM EDT Inhaled Oxygen Concentration - - Weight 109 kg (240 lb) 02/21/2025 3:56 PM EDT Height 185.4 cm (6' 1 ) 02/21/2025 3:56 PM EDT Body Mass Index 31.66 02/21/2025 3:56 PM EDT documented in this encounter Functional Status * Calculated C-SSRS Risk Score (Lifetime/Recent) Answer Date of Assessment Author No Risk Indicated 02/21/2025 5:28 PM EDT Kaylie Bailon, NU * [place] Suicide Severity Rating Scale (Screener/Recent Self-Report) Question Answer Date of Assessment Author 1. Wish to be (Past 1 Month) No 025 5:28 PM EDT Kaylie Bailon, NU 2. Non-Specific Active Suici carmelita Thoughts (Past 1 Month) No 02/21/2025 5:28 PM EDT Kaylie Bailon , NU 6. Suicidal Behavior (Lifetime) No 5:28 PM EDT Kaylie Bailon, NU documented as of this encounter Discharge Instructions * Attachments The following attachments cannot be sent through Care Everywhere. * Nonspecific Chest Pain Adult [id number] (Cameroonian) documented in this encounter ED Notes * Naveen Martin MD - 02/21/2025 7:57 PM EDT Images from the original note were not included. [facility] ENCOUNTER Pt Name: Simeon Hunt Birthdate: 1990 Date of evaluation: 02/21/2025 Provider: Naveen Martin MD CHIEF COMPLAINT Chief Complaint Patient presents with Chest Pain HISTORY OF PRESENT ILLNESS Simeon Hunt is a 34 y.o. male who presents to the emergency department with complaint of chest pain that extends to the left shoulder that began on Sunday. This is worse with pushing over the left chest wall. His symptoms are nonexertional and are not associated with any diaphoresis, nausea, orvomiting. He denies any significant personal or family history of cardiovascular disease and also denies any history of high blood pressure, cholesterol, or diabetes. He is a smoker but denies any illicit drug use or alcohol use. Patient denies any history of VTE as well as any recent surgery, hospitalization, long distance travel, swelling or pain in the lower extremities, or exogenous hormone use. Nursing notes were reviewed. REVIEW OF SYSTEMS ROS: A chief complaint appropriate review of systems was completed and is negative except as noted in the HPI. PAST MEDICAL HISTORY No past medical history on file. SURGICAL HISTORY No past surgical history on file. CURRENT MEDICATIONS No current facility-administered medications for this encounter. No current outpatient medications on file. ALLERGIES Patient has no known allergies. FAMILY HISTORY No family history on file. SOCIAL HISTORY Social History Socioeconomic History Marital status: Single PHYSICAL EXAM (up to 7 for level 4, 8 or more for level 5) Vitals: 02/21/25 1900 02/21/25 1930 02/21/25 2000 02/21/25 2100 BP: 130/82 121/77 126/78 BP Location: Patient Position: Pulse: 67 61 73 69 Resp: Temp: TempSrc: SpO2: 98% 98% 99% 98% Weight: Height: General: Awake, alert, no acute distress. HEENT: Conjunctivae normal. Neck: Trachea midline. Cardiac: Heart regular rate, rhythm, no murmurs, rubs, or gallops Lungs: Lungs are clear to auscultation, there is no wheezing, rhonchi, or rales. There is no use ofaccessory muscles. Chest wall: Moderate tenderness over the left anterior chest wall Abdomen: Abdomen is soft, nontender, nondistended. There are no firm or pulsatile masses, no rebound rigidity or guarding. Musculoskeletal: No deformity. Neuro: Alert Dermatology: Skin is warm and dry Psych: Mentation is grossly normal, cognition is grossly normal. Affect is appropriate. DIAGNOSTIC RESULTS EKG: All EKGs are interpreted by the Emergency Department Physician who either signs or Co-signs this chart in the absence of a scouts. ECG 12 Lead Chest Pain Preliminary Result Test Reason : CP Blood Pressure : */* mmHG Vent. Rate : 60 BPM Atrial Rate : 60 BPM P-R Int : 142 ms QRS Dur : 114 ms QT Int : 428 ms P-R-T Axes : 34 -11 15 degrees QTcB Int : 428 ms Normal sinus rhythm Normal ECG When compared with ECG of 21-Feb-2025 15:55, (Unconfirmed) Previous ECG has undetermined rhythm, needs review Referred By: ER Confirmed By: Telemetry Scan Final Result ECG 12 Lead Chest Pain Preliminary Result Test Reason : Chest Pain Blood Pressure : */* mmHG Vent. Rate : 68 BPM Atrial Rate : 70 BPM P-R Int : * ms QRS Dur : 114 ms QT Int : 400 ms P-R-T Axes : * -9 19 degrees QTcB Int : 425 ms Undetermined rhythm Otherwise normal ECG No previous ECGs available Referred By: Confirmed By: RADIOLOGY: [x] Radiologist's Report Reviewed: XR Chest 1 View Final Result Impression: 1.No acute radiographic abnormality is identified. Electronically Signed: Marito Guthrie MD 02/21/2025 6:00 PM EDT Workstation ID: [id number] I ordered and independently reviewed the above noted radiographic studies. LABS: I have reviewed and interpreted all of the currently available lab results from this visit (if applicable): Results for orders placed or performed during the hospital encounter of 02/21/25 ECG 12 Lead Chest Pain Collection Time: 02/21/25 3:55 PM Result Value Ref Range QT Interval 400 ms QTC Interval 425 ms High Sensitivity Troponin T Collection Time: 02/21/25 5:26 PM Specimen: Blood Result Value Ref Range HS Troponin T 17 <22 ng/L Comprehensive Metabolic Panel Collection Time: 02/21/25 5:26 PM Specimen: Blood Result Value Ref Range Glucose 85 65 - 99 mg/dL BUN 15.7 6.0 - 20.0 mg/dL Creatinine 0.93 0.76 - 1.27 mg/dL Sodium 141 136 - 145 mmol/L Potassium 4.2 3.5 - 5.2 mmol/L Chloride 106 98 - 107 mmol/L CO2 26.5 22.0 - 29.0 mmol/L Calcium 9.4 8.6 - 10.5 mg/dL Total Protein 7.3 6.0 - 8.5 g/dL Albumin 4.6 3.5 - 5.2 g/dL ALT (SGPT) 18 1 - 41 U/L AST (SGOT) 16 1 - 40 U/L Alkaline Phosphatase 53 39 - 117 U/L Total Bilirubin 0.6 0.0 - 1.2 mg/dL Globulin 2.7 gm/dL A/G Ratio 1.7 g/dL BUN/Creatinine Ratio 16.9 7.0 - 25.0 Anion Gap 8.5 5.0 - 15.0 mmol/L eGFR 110.5 >60.0 mL/min/1.73 Lipase Collection Time: 02/21/25 5:26 PM Specimen: Blood Result Value Ref Range Lipase 33 13 - 60 U/L BNP Collection Time: 02/21/25 5:26 PM Specimen: Blood Result Value Ref Range proBNP <36.0 0.0 - 450.0 pg/mL CBC Auto Differential Collection Time: 02/21/25 5:26 PM Specimen: Blood Result Value Ref Range WBC 11.45 (H) 3.40 - 10.80 10*3/mm3 RBC 5.29 4.14 - 5.80 10*6/mm3 Hemoglobin 15.5 13.0 - 17.7 g/dL Hematocrit 46.7 37.5 - 51.0 % MCV 88.3 79.0 - 97.0 fL MCH 29.3 26.6 - 33.0 pg MCHC 33.2 31.5 - 35.7 g/dL RDW 13.2 12.3 - 15.4 % RDW-SD 42.9 37.0 - 54.0 fl MPV 9.7 6.0 - 12.0 fL Platelets 312 140 - 450 10*3/mm3 Neutrophil % 51.9 42.7 - 76.0 % Lymphocyte % 34.0 19.6 - 45.3 % Monocyte % 9.0 5.0 - 12.0 % Eosinophil % 4.0 0.3 - 6.2 % Basophil % 0.8 0.0 - 1.5 % Immature Grans % 0.3 0.0 - 0.5 % Neutrophils, Absolute 5.95 1.70 - 7.00 10*3/mm3 Lymphocytes, Absolute 3.89 (H) 0.70 - 3.10 10*3/mm3 Monocytes, Absolute 1.03 (H) 0.10 - 0.90 10*3/mm3 Eosinophils, Absolute 0.46 (H) 0.00 - 0.40 10*3/mm3 Basophils, Absolute 0.09 0.00 - 0.20 10*3/mm3 Immature Grans, Absolute 0.03 0.00 - 0.05 10*3/mm3 nRBC 0.0 0.0 - 0.2 /100 WBC Green Top (Gel) Collection Time: 02/21/25 5:26 PM Result Value Ref Range Extra Tube Hold for add-ons. Lavender Top Collection Time: 02/21/25 5:26 PM Result Value Ref Range Extra Tube hold for add-on Gold Top - SST Collection Time: 02/21/25 5:26 PM Result Value Ref Range Extra Tube Hold for add-ons. Lee Top Collection Time: 02/21/25 5:26 PM Result Value Ref Range Extra Tube Hold for add-ons. Light Blue Top Collection Time: 02/21/25 5:26 PM Result Value Ref Range Extra Tube Hold for add-ons. ECG 12 Lead Chest Pain Collection Time: 02/21/25 6:53 PM Result Value Ref Range QT Interval 428 ms QTC Interval 428 ms High Sensitivity Troponin T 1Hr Collection Time: 02/21/25 7:02 PM Specimen: Arm, Left; Blood Result Value Ref Range HS Troponin T <6 <22 ng/L Troponin T Numeric Delta If labs were ordered, I independently reviewed the results and considered them in treating the patient. EMERGENCY DEPARTMENT COURSE and DIFFERENTIAL DIAGNOSIS/MDM: Vitals: OF 01:42 EDT BP - 126/78 HR - 69 TEMP - 97.9 ??F (36.6 ??C) (Oral) O2 SATS - 98% Discussion below represents my analysis of pertinent findings related to patient's condition, differential diagnosis, treatment plan and final disposition. Differential diagnosis: The differential diagnosis associated with the patient's presentation includes: ACS, dysrhythmia, pneumonia, pneumothorax, pulmonary embolism, aortic dissection Independent interpretations (ECG/rhythm strip/X-ray/US/CT scan): I independently interpreted the patient's chest x-ray and language tutor. There is no pulmonary infiltrate and the patient is in sinus rhythm Patient's care impacted by: [] Diabetes [] Hypertension [] Coronary Artery Disease [] Cancer [x] Other: Smoker Care significantly affected by Social Determinants of Health (housing and economic circumstances, unemployment) [] Yes [x] No If yes, Patient's care significantly limited by Social Determinants of Health including: [] Inadequate housing [] Low income [] Alcoholism and drug addiction in family [] Problems related to primary support group [] Unemployment [] Problems related to employment [] Other Social Determinants of Health: Consideration of admission/observation vs discharge: I considered observation admission, however feel that patient is very low risk. Workup negative in the ED. Feel that he is stable and appropriate for discharge home with outpatient follow-up. Additional orders considered but not ordered: The following testing was considered but ultimately not selected after discussion with patient/family: I considered pulmonary embolism and aortic dissection and therefore CTA of the chest, however this was not pursued for reasons outlined in the emergency department course ED Course: ED Course as of 02/23/25 0142 Sat Feb 21, 20251953 On reevaluation, the patient remains well-appearing and nontoxic. He is resting comfortably inbed. He has reproducible left anterior chest wall pain with some extension to the shoulder but painis nonexertional, he has no significant personal or family history of cardiovascular disease, symptoms not associated with sweating, vomiting, or dyspnea. ECG unremarkable, troponin negative x 2. From a cardiac perspective, feel that he is stable for discharge home with outpatient follow-up. I considered pulmonary embolism, however patient is low risk and negative PERC score, clinically ruled outfor PE. He has no abrupt or severe ripping or tearing chest pain, there is no extension of pain to the back or abdomen, he is not marfanoid, denies any illicit drug use including any cocaine or methamphetamine and do not feel that presentation is consistent with dissection. Chest x-ray shows no evidence of pneumonia, pneumothorax, or other acute thoracic process. [NS] ED Course User Index [NS] Naveen Martin MD I had a discussion with the patient/family regarding diagnosis, diagnostic results, treatment plan,and medications. The patient/family indicated understanding of these instructions. I spent adequatetime at the bedside preceding discharge necessary to personally discuss the aftercare instructions, giving patient education, providing explanations of the results of our evaluations/findings, and mydecision making to assure that the patient/family understand the plan of care. Time was allotted toanswer questions at that time and throughout the ED course. Emphasis was placed on timely follow-upafter discharge. I also discussed the potential for the development of an acute emergent condition requiring further evaluation, admission, or even surgical intervention. I discussed that we found nothing during the visit today indicating the need for further workup, admission, or the presence of an unstable medical condition. I encouraged the patient to return to the emergency department immediately for ANY concerns, worsening, new complaints, or if symptoms persist and unable to seek follow-up in a timely fashion. The patient/family expressed understanding and agreement with this plan. The patient will follow-up with their PCP in 1-2 days for reevaluation. FINAL IMPRESSION 1. Acute chest pain 2. Smoker 3. BMI 31.0-31.9,adult DISPOSITION/PLAN ED Disposition ED Disposition Discharge Condition Stable Comment -- Comment: Please note this report has been produced using speech recognition software. Naveen Martin MD Attending Emergency Physician Naveen Martin MD 02/23/255 documented in this encounter Plan of Treatment Pending Results Name Type Priority Associated Diagnoses Date /Time ECG 12 Lead Chest Pain ECG STAT 3:55 PM EDT ECG 12 Lead Chest Pain ECG STAT 6:53 PM EDT documented as of this encounter Procedures Procedure Name Priority Date/Time Associated Diagnosis Comments HIGH SENSITIVITIY TROPONIN T 1HR STAT 02/21/2025 7:02 PM EDT ECG 12-LEAD STAT 02/21/2025 6:53 PM EDT Procedure Note - 02/21/2025 6:53 PM EDTThis note is in progress. Test Reason : CP Blood Pressure : */* mmHG Vent. Rate : 60 BPM Atrial Rate : 60 BPM P-R Int : 142 ms QRS Dur : 114 ms QT Int : 428 ms P-R-T Axes : 34 -11 15 degrees QTcB Int : 428 ms Normal sinus rhythm Normal ECG When compared with ECG of 21-Feb-2025 15:55, (Unconfirmed) Previous ECG has undetermined rhythm, needs review Referred By: PATRICIA JOHNSON Confirmed By: XR CHEST 1 VW STAT 02/21/2025 5:53 PM EDT SCANNED - TELEMETRY 02/21/2025 5 :34 PM EDT LEE TOP STAT 02/21/2025 5:26 PM EDT GOLD TOP - SST STAT 02/21/2025 5:26 PM EDT DK GREEN TOP STAT 02/21/2025 5:26 PM EDT CBC WITH AUTO DIFFERENTIAL STAT 02/21/2025 5:26 PM EDT LAVENDER TOP STAT 02/21/2025 5:26 PM EDT LIGHT BLUE TOP STAT 02/21/2025 5:26 PM EDT RAINBOW DRAW STAT 02/21/2025 5:26 PM EDT TROPONIN STAT 02/21/2025 5:26 PM EDT CBC AND DIFFERENTIAL STAT 02/21/2025 5:26 PM EDT B-TYPE NATRIURETIC PEPTIDE STAT 02/21/2025 5:26 PM EDT LIPASE STAT 02/21/2025 5:26 PM EDT COMPREHENSIVE METABOLIC PANEL STAT 02/21/2025 5:26 PM EDT ECG 12-LEAD STAT 02/21/2025 3:55 PM EDT Procedure Note - 02/21/2025 3:55 PM EDTThis note is in progress. Test Reason : Chest Pain Blood Pressure : */* mmHG Vent. Rate : 68 BPM Atrial Rate : 70 BPM P-R Int : * ms QRS Dur : 114 ms QT Int : 400 ms P-R-T Axes : * -9 19 degrees QTcB Int : 425 ms Undetermined rhythm Otherwise normal ECG No previous ECGs available Referred By: Confirmed By: documented in this encounter Results * High Sensitivity Troponin T 1Hr (02/21/2025 7:02 PM EDT) HS Troponin T <6 <22 ng/L 02/21/2025 7:46 PM EDT [facility] Troponin T Numeric Delta 02/21/2025 7:46 PM EDT [facility] Comment:Unable to calculate. Blood Structure of left upper limb / Unknown Venipuncture / Unknown 02/21/2025 7:02 PM EDT 02/21/2025 7:13 PM EDT Narrative [facility] - 02/21/2025 7:46 PM EDT High Sensitive Troponin T Reference Range: <14.0 ng/L- Negative Female for AMI <22.0 ng/L- Negative Male for AMI >=14 - Abnormal Female indicating possible myocardial injury. >=22 - Abnormal Male indicating possible myocardial injury. Clinicians would have to utilize clinical acumen, EKG, Troponin, and serial changes to determine if it is an Acute Myocardial Infarction or myocardial injury due to an underlying chronic condition. Naveen Martin MD LAB BLOOD ORDERABLES Final R esult [facility]
[address] [place] [address], * XR Chest 1 View (02/21/2025 5:53 PM EDT) Anatomical Region Laterality Modality Body N/A Radiographic Cindy ging 02/21/2025 6:00 PM EDT Impressions 02/21/2025 6:00 PM EDT Impression: 1.No acute radiographic abnormality is identified. Electronically Signed: Marito Guthrie MD 02/21/2025 6:00 PM EDT Workstation ID: [id number] Narrative 02/21/2025 6:00 PM EDT XR CHEST 1 VW Date of Exam: 02/21/2025 5:25 PM EDT Indication: Chest Pain Triage Protocol. Comparison: None available. Findings: The lungs appear adequately aerated without consolidation or mass. No pleural effusion or pneumothorax is identified. The cardiomediastinal silhouette and pulmonary vasculature appear within normal limits. No acute or suspicious osseous lesion is identified. Procedure Note Marito Guthrie MD - 02/21/2025 XR CHEST 1 VW Date of Exam: 02/21/2025 5:25 PM EDT Indication: Chest Pain Triage Protocol. Comparison: None available. Findings: The lungs appear adequately aerated without consolidation or mass. Nopleural effusion or pneumothorax is identified. The cardiomediastinalsilhouette and pulmonary vasculature appear within normal limits. No acuteor suspicious osseous lesion is identified. IMPRESSION: Impression: 1.No acute radiographic abnormality is identified. Electronically Signed: Marito Guthrie MD 02/21/2025 6:00 PM EDT Workstation ID: [id number] Naveen Martin MD IM DIAGNOSTIC IMAGING ORDER CY Final Result * Telemetry Scan (02/21/2025 5:34 PM EDT) [facility] ECG ORDERABLES Final Result * (ABNORMAL) CBC Auto Differential (02/21/2025 5:26 PM EDT) WBC 11.45(H) 3.40 - 10.80 10*3/mm3 02/21/2025 5:51 PM EDT [facility] RBC 5.29 4.14 - 5.80 10*6/mm3 02/21/2025 5:51 PM EDT [facility] Hemoglobin 15.5 13.0 - 17.7 g/dL 02/21/2025 5:51 PM EDT [facility] Hematocrit 46.7 37.5 - 51.0 % 02/21/2025 5:51 PM EDT [facility] MCV 88.3 79.0 - 97.0 fL 02/21/2025 5:51 PM EDT [facility] MCH 29.3 26.6 - 33.0 pg 02/21/2025 5:51 PM EDT [facility] MCHC 33.2 31.5 - 35.7 g/dL 02/21/2025 5:51 PM EDT [facility] RDW 13.2 12.3 - 15.4 % 02/21/2025 5:51 PM EDT [facility] RDW-SD 42.9 37.0 - 54.0 fl 02/21/2025 5:51 PM EDT [facility] MPV 9.7 6.0 - 12.0 fL 02/21/2025 5:51 PM EDT [facility] Platelets 312 140 - 450 10*3/mm3 02/21/2025 5:51 PM EDT [facility] Neutrophil % 51.9 42.7 - 76.0 % 02/21/2025 5:51 PM EDT [facility] Lymphocyte % 34.0 19.6 - 45.3 % 02/21/2025 5:51 PM EDT [facility] Monocyte % 9.0 5.0 - 12.0 % 02/21/2025 5:51 PM EDT [facility] Eosinophil % 4.0 0.3 - 6.2 % 02/21/2025 5:51 PM EDT [facility] Basophil % 0.8 0.0 - 1.5 % 02/21/2025 5:51 PM EDT [facility] Immature Grans % 0.3 0.0 - 0.5 % 02/21/2025 5:51 PM EDT [facility] Neutrophils, Absolute 5.95 1.70 - 7.00 10*3/mm3 02/21/2025 5:51 PM EDT [facility] Lymphocytes, Absolute 3.89(H) 0.70 - 3.10 10*3/mm3 02/21/2025 5:51 PM EDT [facility] Monocytes, Absolute 1.03(H) 0.10 - 0.90 10*3/mm3 02/21/2025 5:51 PM EDT [facility] Eosinophils, Absolute 0.46(H) 0.00 - 0.40 10*3/mm3 02/21/2025 5:51 PM EDT [facility] Basophils, Absolute 0.09 0.00 - 0.20 10*3/mm3 02/21/2025 5:51 PM EDT [facility] Immature Grans, Absolute 0.03 0.00 - 0.05 10*3/mm3 02/21/2025 5:51 PM EDT [facility] nRBC 0.0 0.0 - 0.2 /100 WBC 02/21/2025 5:51 PM EDT [facility] Blood Venipuncture / Unknown 02/21/2025 5:26 PM EDT 02/21/2025 5:35 PM EDT Naveen Martin MD LAB BLOOD ORDERABLES Final R esult [facility]
[address] [place] [address], * Light Blue Top (02/21/2025 5:26 PM EDT) Extra Tube Hold for add-ons. 02/21/2025 5:46 PM EDT [facility] Comment:Auto resulted Blood Venipuncture / Unknown 02/21/2025 5:26 PM EDT 02/21/2025 5:35 PM EDT Naveen Martin MD LAB BLOOD ORDER ONLY Final R esult [facility]
[address] [place] [address], * Lee Top (02/21/2025 5:26 PM EDT) Extra Tube Hold for add-ons. 02/21/2025 5:46 PM EDT [facility] Comment:Auto resulted. Blood Venipuncture / Unknown 02/21/2025 5:26 PM EDT 02/21/2025 5:35 PM EDT us Naveen Martin MD LAB BLOOD ORDER ONLY Final R esult Performing Organization Address City/[facility]/ZIP Co de Phone Number [facility]
[address] [place] [address], * Gold Top - SST (02/21/2025 5:26 PM EDT) Extra Tube Hold for add-ons. 02/21/2025 5:46 PM EDT [facility] Comment:Auto resulted. Blood Venipuncture / Unknown 02/21/2025 5:26 PM EDT 02/21/2025 5:35 PM EDT us Naveen Martin MD LAB BLOOD ORDER ONLY Final R esult Performing Organization Address [facility]/ZIP Co de Phone Number [facility]
[address] [place] [address], * Lavender Top (02/21/2025 5:26 PM EDT) Extra Tube hold for add-on 02/21/2025 5:46 PM EDT [facility] Comment:Auto resulted Blood Venipuncture / Unknown 02/21/2025 5:26 PM EDT 02/21/2025 5:35 PM EDT us Naveen Martin MD LAB BLOOD ORDER ONLY Final R esult Performing Organization Address City/[facility]/ZIP Co de Phone Number [facility]
[address] [place] [address], [place] [phone] * Green Top (Gel) (02/21/2025 5:26 PM EDT) Extra Tube Hold for add-ons. 02/21/2025 5:46 PM EDT [facility] Comment:Auto resulted. Blood Venipuncture / Unknown 02/21/2025 5:26 PM EDT 02/21/2025 5:35 PM EDT Naveen Martin MD LAB BLOOD ORDER ONLY Final R esult Performing Organization Address City/[facility]/ZIP Co de Phone Number [facility]
[address] [place] [address], * BNP (02/21/2025 5:26 PM EDT) proBNP <36.0 0.0 - 450.0 pg/mL 02/21/2025 5:58 PM EDT [facility] Blood Venipuncture / Unknown 02/21/2025 5:26 PM EDT 02/21/2025 5:35 PM EDT Narrative [facility] - 02/21/2025 5:58 PM EDT This assay is used as an aid in the diagnosis of individuals suspected of having heart failure. It can be used as an aid in the diagnosis of acute decompensated heart failure (ADHF) in patients presenting with signs and symptoms of ADHF to the emergency department (ED). In addition, NT-proBNP of <300 pg/mL indicates ADHF is not likely. Age Range Result Interpretation NT-proBNP Concentration (pg/mL: <50 Positive >450 Lee 300-450 Negative <300 50-75 Positive >900 Lee 300-900 Negative <300 >75 Positive >1800 Lee 300-1800 Negative <300 us Naveen Martin MD LAB BLOOD ORDERABLES Final R esult Performing Organization Address City/[facility]/ZIP Co de Phone Number [facility]
[address] [place] [address], * Lipase (02/21/2025 5:26 PM EDT) Lipase 33 13 - 60 U/L 02/21/2025 5:58 PM EDT [facility] Blood Venipuncture / Unknown 02/21/2025 5:26 PM EDT 02/21/2025 5:35 PM EDT Naveen Martin MD LAB BLOOD ORDERABLES Final R esult [facility]
[address] [place] [address], * Comprehensive Metabolic Panel (02/21/2025 5:26 PM EDT) Glucose 85 65 - 99 mg/dL 02/21/2025 5:58 PM EDT [facility] BUN 15.7 6.0 - 20.0 mg/dL 02/21/2025 5:58 PM EDT [facility] Creatinine 0.93 0.76 - 1.27 mg/dL 02/21/2025 5:58 PM EDT [facility] Sodium 141 136 - 145 mmol/L 02/21/2025 5:58 PM EDT [facility] Potassium 4.2 3.5 - 5.2 mmol/L 02/21/2025 5:58 PM EDT [facility] Chloride 106 98 - 107 mmol/L 02/21/2025 5:58 PM EDT [facility] CO2 26.5 22.0 - 29.0 mmol/L 02/21/2025 5:58 PM EDT [facility] Calcium 9.4 8.6 - 10.5 mg/dL 02/21/2025 5:58 PM EDT [facility] Total Protein 7.3 6.0 - 8.5 g/dL 02/21/2025 5:58 PM EDT [facility] Albumin 4.6 3.5 - 5.2 g/dL 02/21/2025 5:58 PM EDT [facility] ALT (SGPT) 18 1 - 41 U/L 02/21/2025 5:58 PM EDT [facility] AST (SGOT) 16 1 - 40 U/L 02/21/2025 5:58 PM EDT [facility] Alkaline Phosphatase 53 39 - 117 U/L 02/21/2025 5:58 PM EDT [facility] Total Bilirubin 0.6 0.0 - 1.2 mg/dL 02/21/2025 5:58 PM EDT [facility] Globulin 2.7 gm/dL 02/21/2025 5:58 PM EDT [facility] Comment:Calculated Result A/G Ratio 1.7 g/dL 02/21/2025 5:58 PM EDT [facility] BUN/Creatinine Ratio 16.9 7.0 - 25.0 02/21/2025 5:58 PM EDT [facility] Anion Gap 8.5 5.0 - 15.0 mmol/L 02/21/2025 5:58 PM EDT [facility] eGFR 110.5 >60.0 mL/min/1.7 3 02/21/2025 5:58 PM EDT [facility] Blood Venipuncture / Unknown 02/21/2025 5:26 PM EDT 02/21/2025 5:35 PM EDT [facility] - 02/21/2025 5:58 PM EDT GFR Categories in Chronic Kidney Disease (CKD) GFR Category GFR (mL/min/1.73) Interpretation G1 90 or greater Normal or high (1) G2 60-89 Mild decrease (1) G3a 45-59 Mild to moderate decrease G3b 30-44 Moderate to severe decrease G4 15-29 Severe decrease G5 14 or less Kidney failure (1)In the absence of evidence of kidney disease, neither GFR category G1 or G2 fulfill the criteria for CKD. eGFR calculation 2020 CKD-EPI creatinine equation, which does not include race as a factor us Naveen Martin MD LAB BLOOD ORDERABLES Final R esult [facility]
[address] [place] [address], [place] [phone] * High Sensitivity Troponin T (02/21/2025 5:26 PM EDT) HS Troponin T 17 <22 ng/L 02/21/2025 5:58 PM EDT [facility] Blood Venipuncture / Unknown 02/21/2025 5:26 PM EDT 02/21/2025 5:35 PM EDT Narrative [facility] - 02/21/2025 5:58 PM EDT High Sensitive Troponin T Reference Range: <14.0 ng/L- Negative Female for AMI <22.0 ng/L- Negative Male for AMI >=14 - Abnormal Female indicating possible myocardial injury. >=22 - Abnormal Male indicating possible myocardial injury. Clinicians would have to utilize clinical acumen, EKG, Troponin, and serial changes to determine if it is an Acute Myocardial Infarction or myocardial injury due to an underlying chronic condition. Naveen Martin MD LAB BLOOD ORDERABLES Final R esult [facility]
[address] [place] [address], documented in this encounter Visit Diagnoses Diagnosis Acute chest pain- Primary Unspecified chest pain Smoker Tobacco use disorder BMI 31.0-31.9,adult documented in this encounter Administered Medications Inactive Administered Medications - up to 3 most recent administrations Medication Order MAR Action Action Date Dose Rate Site aspirin chewable tablet 324 mg 324 mg, Oral, Once, On 02/21/25 at 1613, For 1 dose, Herbal/drug interaction: Avoid use with ginkgo biloba. Based on patient request - if ordered for moderate or severe pain, provider allows for administration of a medication prescribed for a lower pain scale. Do not exceed 4 grams of aspirin in a 24 hr period. If given for pain, use the following pain scale: Mild Pain = Pain Score of 1-3, CPOT 1-2 Moderate Pain = Pain Score of 4-6, CPOT 3-4 Severe Pain = Pain Score of 7-10, CPOT 5-8, Indications: Chest pain protocolIndications:Chest pain protocol Given 02/21/2025 5:22 PM EDT 324 mg sodium chloride 0.9 % flush 10 mL 10 mL, Intravenous, As Needed, Line Care, Starting on 02/21/25 at 1557 documented in this encounter Active and Recently Administered Medications Times are shown in EDT. Scheduled Medication Order 02/19/2025 02/20/2025 02/21/2025 aspirin chewable tablet 324 mg (COMPLETED) 324 mg, Oral, Once, On 02/21/25 at 1613, For 1 dose, Herbal/drug interaction: Avoid use with ginkgo biloba. Based on patient request - if ordered for moderate or severe pain, provider allows for administration of a medication prescribed for a lower pain scale. Do not exceed 4 grams of aspirin in a 24 hr period. If given for pain, use the following pain scale: Mild Pain = Pain Score of 1-3, CPOT 1-2 Moderate Pain = Pain Score of 4-6, CPOT 3-4 Severe Pain = Pain Score of 7-10, CPOT 5-8, Indications: Chest pain protocol 1722 (Given - Provid er: Kaylie Bailon RN) PRN Medication Order 02/19/2025 02/20/2025 02/21/2025 sodium chloride 0.9 % flush 10 mL 10 mL, Intravenous, As Needed, Line Care, Starting on 02/21/25 at 1557 documented in this encounter Care Teams Memorandum Statement Clerk Relationship Specialty Start Date End Date Provider, [place] [address] PCP - General 02/21/25 documented as of this encounter
--- NOTE | 2025-03-02 | CA_ITS ---
APPROVED REPORT Exam: Exercise Treadmill Technologist: Katharine Faith Stress Nurse: Alejandra LOFTON, RN Ht: 6 ft 1 in Wt: 256 lbs BSA: 2.39 m2 HR: 63 bpm BP: 118/71 mmHg Indications: Chest pain Stress Test Details Test: Exercise stress testing was performed using a Spencer protocol. HR Resting HR: 63 bpm Max Heart Rate (APMHR): [phone] bpm Max HR Achieved: 165 bpm Target HR (85% APMHR): 158.158221 bpm % of APMHR: 88.71 Recovery HR: 81 bpm BP Resting BP: 118.0/71.0 mmHg Max BP: 180.0/93.0 mmHg Recovery BP: 136.0/73.0 mmHg ECG Resting ECG: Sinus rhythm Stress ECG Conclusion Requested test stop due to leg fatigue at 10:12 minutes Symptoms: Leg fatigue Arrhythmias/Ectopy: PAC ST-T Changes: Less than 0.[address] segment changes. Electronically signed by : Karie Jaquez MD 03/04/2025 00:56:27
--- OUTSIDE RECORDS SUMMARY | 2025-03-02 06:47 | XMS_ITS | Encounter Summary ---
Author Organization [facility] Address [address] [place] [address] Care Team Providers Care Bottom Finisher Name Role Phone Provider, No Known Primary [...] 5:28 PM EDT Kaylie Bailon, RN * [place] Suicide Severity Rating Scale (Screener/Recent Self-Report) Question [...] on filedocumented in this encounter Care Teams Bottom Finisher Relationship Specialty Start Date End Date Provider, [place] [address] PCP - General 02/21/25 documented as of this encounter
--- OUTSIDE RECORDS SUMMARY | 2025-03-02 06:47 | XMS_ITS | Clinical Summary ---
Author Organization [facility] Address [address] [place] [address] Care Team Providers Care Enrichment Teacher Name Role Phone Provider, No Known Primary Care Provider Unavail able Allergies No known active allergies Medications No known medications Encounters Date Type Department Care Team Description 02/21/2025 5:14 PM EDT - 02/21/2025 9:04 PM EDT Emergency [facility] EMERGENCY DEPARTMENT [address] [place] [id number] Naveen Martin MD Acute chest pain [...] <6 <22 ng/L 02/21/2025 7:46 PM EDT [facility] Troponin T Numeric Delta 02/21/2025 7:46 PM EDT [facility] Comment:Unable to calculate. Blood Structure of left upper limb / Unknown Venipuncture / Unknown 02/21/2025 7:02 PM EDT 02/21/2025 7:13 PM EDT Narrative [facility] - 02/21/2025 7:46 PM [...] MD LAB BLOOD ORDERABLES Final R esult [facility]
[address] [place] [address], * XR Chest 1 View (02/21/2025 5:53 PM EDT) Anatomical Region Laterality Modality Body N/A Radiographic Cindy ging 02/21/2025 6:00 PM EDT Impressions 02/21/2025 6:00 PM EDT Impression: 1.No acute radiographic abnormality is identified. Electronically Signed: Marito Guthrie MD 02/21/2025 6:00 PM EDT Workstation ID: [id number] Narrative 02/21/2025 6:00 PM EDT XR CHEST [...] MD 02/21/2025 6:00 PM EDT Workstation ID: [id number] Naveen Martin MD IMG DIAGNOSTIC IMAGING ORDER CY Final Result * Telemetry Scan (02/21/2025 5:34 PM EDT) [facility] ORDERABLES Final Result * Lee Top (02/21/2025 5:26 PM EDT) Extra Tube Hold for add-ons. 02/21/2025 5:46 PM EDT [facility] Comment:Auto resulted. Blood Venipuncture / Unknown 02/21/2025 5:26 PM EDT 02/21/2025 5:35 PM EDT Naveen Martin MD LAB BLOOD ORDER ONLY Final R esult [facility]
[address] [place] [address], * Gold Top - SST (02/21/2025 5:26 PM EDT) Extra Tube Hold for add-ons. 02/21/2025 5:46 PM EDT [facility] Comment:Auto resulted. Blood Venipuncture / Unknown 02/21/2025 5:26 PM EDT 02/21/2025 5:35 PM EDT Naveen Martin MD LAB BLOOD ORDER ONLY Final R esult Performing Organization Address City/[facility]/ZIP Co de Phone Number [facility]
[address] [place] [address], * Green Top (Gel) (02/21/2025 5:26 PM EDT) Pathologist [facility] [place] Extra Tube Hold for add-ons. 02/21/2025 5:46 PM EDT [facility] Comment:Auto resulted. Blood Venipuncture / Unknown 02/21/2025 5:26 PM EDT 02/21/2025 5:35 PM EDT Naveen Martin MD LAB BLOOD ORDER ONLY Final R esult Performing Organization Address City/[facility]/ZIP Co de Phone Number [facility]
[address] [place] [address], * (ABNORMAL) CBC Auto Differential (02/21/2025 5:26 PM EDT) Pathologist [facility] [place] WBC 11.45(H) 3.40 - 10.80 10*3/mm3 02/21/2025 5:51 PM EDT [facility] RBC 5.29 4.14 - 5.80 10*6/mm3 02/21/2025 5:51 PM EDT [facility] Hemoglobin 15.5 13.0 - 17.7 g/dL 02/21/2025 5:51 PM EDT [facility] Hematocrit 46.7 37.5 - 51.0 % 02/21/2025 5:51 PM EDT [facility] MCV 88.3 79.0 - 97.0 fL 02/21/2025 5:51 PM EDT [facility] MCH 29.3 26.6 - 33.0 pg 02/21/2025 5:51 PM EDT [facility] MCHC 33.2 31.5 - 35.7 g/dL 02/21/2025 5:51 PM EDT [facility] RDW 13.2 12.3 - 15.4 % 02/21/2025 5:51 PM EDT [facility] RDW-SD 42.9 37.0 - 54.0 fl 02/21/2025 5:51 PM EDT [facility] MPV 9.7 6.0 - 12.0 fL 02/21/2025 5:51 PM EDT [facility] Platelets 312 140 - 450 10*3/mm3 02/21/2025 5:51 PM EDT [facility] Neutrophil % 51.9 42.7 - 76.0 % 02/21/2025 5:51 PM EDT [facility] Lymphocyte % 34.0 19.6 - 45.3 % 02/21/2025 5:51 PM EDT [facility] Monocyte % 9.0 5.0 - 12.0 % [facility] Eosinophil % 4.0 0.3 - 6.2 % 02/21/2025 5:51 PM EDT [facility] Basophil % 0.8 0.0 - 1.5 % 02/21/2025 5:51 PM EDT [facility] Immature Grans % 0.3 0.0 - 0.5 % 02/21/2025 5:51 PM EDT [facility] Neutrophils, Absolute 5.95 1.70 - 7.00 10*3/mm3 02/21/2025 5:51 PM EDT [facility] Lymphocytes, Absolute 3.89(H) 0.70 - 3.10 10*3/mm3 02/21/2025 5:51 PM EDT [facility] Monocytes, Absolute 1.03(H) 0.10 - 0.90 10*3/mm3 02/21/2025 5:51 PM EDT [facility] Eosinophils, Absolute 0.46(H) 0.00 - 0.40 10*3/mm3 02/21/2025 5:51 PM EDT [facility] Basophils, Absolute 0.09 0.00 - 0.20 10*3/mm3 02/21/2025 5:51 PM EDT [facility] Immature Grans, Absolute 0.03 0.00 - 0.05 10*3/mm3 02/21/2025 5:51 PM EDT [facility] nRBC 0.0 0.0 - 0.2 /100 WBC 02/21/2025 5:51 PM EDT [facility] Blood Venipuncture / Unknown 02/21/2025 5:26 PM EDT 02/21/2025 5:35 PM EDT Naveen Martin MD LAB BLOOD ORDERABLES Final R esult Performing Organization Address City/[facility]/ZIP Co de Phone Number [facility]
[address] [place] [address], * Lavender Top (02/21/2025 5:26 PM EDT) Extra Tube hold for add-on 02/21/2025 5:46 PM EDT [facility] Comment:Auto resulted Blood Venipuncture / Unknown 02/21/2025 5:26 PM EDT 02/21/2025 5:35 PM EDT Naveen Martin MD LAB BLOOD ORDER ONLY Final R esult [facility]
[address] [place] [address], * Light Blue Top (02/21/2025 5:26 PM EDT) Extra Tube Hold for add-ons. 02/21/2025 5:46 PM EDT [facility] Comment:Auto resulted Blood Venipuncture / Unknown 02/21/2025 5:26 PM EDT 02/21/2025 5:35 PM EDT Naveen Martin MD LAB BLOOD ORDER ONLY Final R esult [facility]
[address] [place] [address], * High Sensitivity Troponin T (02/21/2025 5:26 PM EDT) HS Troponin T 17 <22 ng/L 02/21/2025 5:58 PM EDT [facility] Blood Venipuncture / Unknown 02/21/2025 5:26 PM EDT 02/21/2025 5:35 PM EDT [facility] - 02/21/2025 5:58 PM [...] ORDERABLES Final R esult Performing Organization Address City/[facility]/ZIP Co de Phone Number [facility]
[address] [place] [address], * BNP (02/21/2025 5:26 PM EDT) proBNP <36.0 0.0 - 450.0 pg/mL 02/21/2025 5:58 PM EDT [facility] Blood Venipuncture / Unknown 02/21/2025 5:26 PM EDT 02/21/2025 5:35 PM EDT Narrative [facility] - 02/21/2025 5:58 PM [...] ORDERABLES Final R esult Performing Organization Address City/[facility]/ZIP Co de Phone Number [facility]
[address] [place] [address], * Lipase (02/21/2025 5:26 PM EDT) Lipase 33 13 - 60 U/L 02/21/2025 5:58 PM EDT [facility] Blood Venipuncture / Unknown 02/21/2025 5:26 PM EDT 02/21/2025 5:35 PM EDT Naveen Martin MD LAB BLOOD ORDERABLES Final R esult Performing Organization Address City/[facility]/ZIP Co de Phone Number [facility]
[address] [place] [address], * Comprehensive Metabolic Panel (02/21/2025 5:26 PM EDT) Glucose 85 65 - 99 mg/dL 02/21/2025 5:58 PM EDT [facility] BUN 15.7 6.0 - 20.0 mg/dL 02/21/2025 5:58 PM EDT [facility] Creatinine 0.93 0.76 - 1.27 mg/dL 02/21/2025 5:58 PM EDT [facility] Sodium 141 136 - 145 mmol/L 02/21/2025 5:58 PM EDT [facility] Potassium 4.2 3.5 - 5.2 mmol/L 02/21/2025 5:58 PM EDT [facility] Chloride 106 98 - 107 mmol/L 02/21/2025 5:58 PM EDT [facility] CO2 26.5 22.0 - 29.0 mmol/L 02/21/2025 5:58 PM EDT [facility] Calcium 9.4 8.6 - 10.5 mg/dL 02/21/2025 5:58 PM EDT [facility] Total Protein 7.3 6.0 - 8.5 g/dL 02/21/2025 5:58 PM EDT [facility] Albumin 4.6 3.5 - 5.2 g/dL 02/21/2025 5:58 PM EDT [facility] ALT (SGPT) 18 1 - 41 U/L 02/21/2025 5:58 PM EDT [facility] AST (SGOT) 16 1 - 40 U/L 02/21/2025 5:58 PM EDT [facility] Alkaline Phosphatase 53 39 - 117 U/L 02/21/2025 5:58 PM T [facility] Total Bilirubin 0.6 0.0 - 1.2 mg/dL 02/21/2025 5:58 PM EDT [facility] Globulin 2.7 gm/dL 02/21/2025 5:58 PM T [facility] Comment:Calculated Result A/G Ratio 1.7 g/dL 02/21/2025 5:58 PM EDT [facility] BUN/Creatinine Ratio 16.9 7.0 - 25.0 02/21/2025 5:58 PM T [facility] Anion Gap 8.5 5.0 - 15.0 mmol/L 02/21/2025 5:58 PM T [facility] eGFR 110.5 >60.0 mL/min/1.7 3 02/21/2025 5:58 PM [facility] Blood Venipuncture / Unknown 02/21/2025 5:26 PM EDT 02/21/2025 5:35 PM EDT Narrative [facility] - 02/21/2025 5:58 PM [...] MD LAB BLOOD ORDERABLES Final R esult [facility]
[address] [place] [address], from Last 3 Months Insurance PPO Care Teams Enrichment Teacher Relationship Specialty Start Date End Date Provider, [place] [address] PCP - General 02/21/25
--- NOTE | 2025-03-02 07:00 | NM_ITS ---
APPROVED REPORT Exam: Nuclear Stress Test Indication: Chest pain, Palpitations, Tobacco use, Family history Patient Location: Outpatient Stress Tech: Katharine BOJORQUEZ Tech:Maddy Hussein, ARRT, RT (R)(N) Ht: 6 ft 1 in Wt: 255 lbs HR: 57 bpm BP: 118/71 mmHg BSA: 2.39 m2 TID: 1.11 BMI: 33.6 History: Chest pain, Palpitations, Tobacco use, Family history Procedure: Patient exercised on Spencer protocol 10:12 minutes and sec, resting heart rate 57 bpm, resting blood pressure 118/71 mmHg, with exercise maximum heart rate achived was 165 bpm which is 88 % of the maximum predicted heart rate and blood pressure was 180/93 mmHg. Test was stopped due to SOB. Patient denied any complaint of chest pain. Patient has exercise capacity, achieved 12.1 METs of workload on treadmill, the blood pressure response to exercise was . Cardiac Stress and Resting SPECT Images: Cardiac Stress and Resting SPECT images were obtained using technetium 99m Myoview 30.7 mCi stress and 10.57 mCi at rest. Resting and stress imaging in supine and prone positions demonstrate a medium-sized, moderate, predominantly fixed perfusion defect in the basal to mid inferior LV wall. There is a small region of reversibility towards the mid inferior LV wall. Gated imaging demonstrates normal global LV systolic function. LVEF is calculated at 52%. Conclusion: Medium-sized, moderate, predominantly fixed perfusion defect in the basal to mid inferior LV wall. There is a small region of reversibility towards the mid inferior LV wall. Gated imaging demonstrates normal global LV systolic function. LVEF is calculated at 52%. Electronically signed by : Karie Jaquez MD 03/03/2025 13:11:16
[2025-03-02 08:30] VITALS: BP 118/71; BP 180/93; PULSE 63; RESP 16
[2025-03-02] MEDS: ISOTOPE MYOVIEW (PER STUDY) 1 DOSE IV (08:45)
[2025-03-02] MEDS: SODIUM CHLORIDE 0.9% 10ML SYR (RAD ONLY) 10 ML IV ×2 (08:45)
--- NOTE | 2025-03-02 09:30 | CA_ITS ---
APPROVED REPORT EXAM: Comprehensive 2D, Doppler, and color-flow Echocardiogram Print Decorator: Nova Kearney CRT Ht: 6 ft 1 in Wt: 256lbs BSA: 2.39 BP: 124/62 mmHg Indications: Chest Pain, Palpitations, smoker 2D Dimensions LA Volume 36.60 mL LA Volume Index 14.90 mL/m2 (M/F) 16-34 M-Mode Dimensions RVDd 2.17 cm (0.9-2.6) LA Diam 3.75 cm (1.9-4.0) LVDd 5.81 cm (3.5-5.7) LVDs 3.64 cm (3.5-5.7) IVSd 1.28 cm (0.6-1.1) PWd 0.93 cm (0.6-1.1) EF (Teich) 66.60% FS 37.30% EDV (Teich) 167.20 mL ESV (Teich) 55.90 mL LV Diastology E Decel Time 267 (160-240 msec) E/A Ratio 1.72 MED A' 9.00 cm/s LAT A' 7.90 cm/s Aortic Valve AO Peak GR. 5.60 mmHg Mitral Valve MV E Max Rip. 98.0 (40-130 cm/s) MV A Velocity 57.0 (40-130 cm/s) E/A Ratio 1.72 MV PHT 78.0 ms Pulmonary Valve PV Peak Velocity 88.0 (50-150 cm/s) Tricuspid Valve TR P. Velocity 184.00 cm/s RAP Estimate 10.00 mmHg RVSP 23.60 mmHg Left Ventricle The left ventricle is normal size. Left ventricular systolic function is normal. The left ventricular ejection fraction is within the normal range. There is normal left ventricular wall thickness. There is normal LV segmental wall motion. The left ventricular diastolic function is normal. LVEF is 55% Right Ventricle The right ventricle is normal size. The right ventricular systolic function is normal. Atria The left atrium size is normal. The right atrium size is normal. There is no color Doppler evidence of interatrial shunt. Aortic Valve The aortic valve opens well. There is no hemodynamically significant aortic valvular stenosis. No aortic regurgitation is present. Mitral Valve The mitral valve is normal in structure. No evidence of mitral valve stenosis. Trace mitral regurgitation is present. Tricuspid Valve The tricuspid valve leaflets are thin and pliable. Trace tricuspid regurgitation. There is insufficient TR jet to estimate RVSP. Pulmonic Valve The pulmonary valve is grossly normal in structure. Trace pulmonic valve regurgitation is present. Great Vessels The aortic root is normal in size. IVC is normal in size and collapses >50% with inspiration. Pericardium There is no pericardial effusion. Other Information Study Quality: Fair Conclusion Normal biventricular systolic function. No significant valvular stenosis or regurgitation. Electronically signed by : Karie Jaquez MD 03/02/2025 13:06:20
== END 2025-03-02 23:59 | disposition home or self-care (01) ==
LOC: RAD 06:45
PROVIDERS: Visit Provider Nurse Practitioner
DX: I49.1 Atrial premature depolarization (principal); R53.83 Other fatigue; R94.39 Abnormal result of other cardiovascular function study; R94.31 Abnormal electrocardiogram [ECG] [EKG]; F17.200 Nicotine dependence, unspecified, uncomplicated; Z82.49 Family history of ischemic heart disease and other diseases of the circulatory system
CPT/HCPCS: 78452; 93017; 93018; 93306; A9502